=== PATIENT | female | born 1955 | race Hispanic/Latino ===

== ENCOUNTER 2018-12-27 10:29 | Inpatient (IN) | payer MEDICARE ==
--- NOTE | 2018-12-27 11:16 | Emergency Department Report ---
ED Shortness of Breath HPI - General Chief Complaint: Dyspnea/Respdistress Stated Complaint: DANIELA Time Seen by Provider: 12/27/18 11:04 Source: patient Mode of arrival: Ambulatory Limitations: No Limitations - History of Present Illness Initial Comments: 63-year-old female with past medical history of mental health disorder and COPD is currently bedridden presents to emergency department via EMS from [facility] for cough, chest congestion and sputum production breath. Patient states she has not eating well for the past few weeks but denies any nausea, vomiting, diarrhea, abdominal pain or chest pain. She was given DuoNe 2 facility and was asked to department for further evaluation and treatment options. She denies any tobacco usage ,hemoptysis and hematemesis and hematochezia. MD Complaint: shortness of breath -: Gradual Severity: mild Consistency: constant Improves With: nothing Worsens With: lying flat Known History Of: COPD Associated Symptoms: cough, sputum production - Related Data Home Medications Medication Instructions Recorded Confirmed Last Taken Amantadine [Symmetrel] 200 mg PO HS 12/27/18 12/27/18 Unknown Gabapentin [Neurontin] 300 mg PO HS 12/27/18 12/27/18 Unknown Omeprazole 40 mg PO DAILY 12/27/18 12/27/18 Unknown Oxycodone HCl/Acetaminophen 1 each PO BID PRN 12/27/18 12/27/18 Unknown [Percocet 10/325 mg] QUEtiapine [SEROquel] 150 mg PO HS 12/27/18 12/27/18 Unknown cephALEXin [Keflex] 250 mg PO QID 12/27/18 12/27/18 Unknown diazePAM [Diazepam] 10 mg PO TID 12/27/18 12/27/18 Unknown predniSONE [Deltasone] 5 mg PO DAILY 12/27/18 12/27/18 Unknown Allergies Allergy/AdvReac Type Severity Reaction Status Date / Time No Known Allergies Allergy Unverified 12/27/18 11:02 ED Review of Systems ROS: Stated complaint: DANIELA Other details as noted in HPI Comment: All other systems reviewed and negative ED Past Medical Hx - Past Medical History Previous Medical History?: Yes - Social History Smoking Status: Never Smoker - Medications Home Medications: Home Medications Medication Instructions Recorded Confirmed Last Taken Type Amantadine [Symmetrel] 200 mg PO HS 12/27/18 12/27/18 Unknown History Gabapentin [Neurontin] 300 mg PO HS 12/27/18 12/27/18 Unknown History Omeprazole 40 mg PO DAILY 12/27/18 12/27/18 Unknown History Oxycodone HCl/Acetaminophen 1 each PO BID PRN 12/27/18 12/27/18 Unknown History [Percocet 10/325 mg] QUEtiapine [SEROquel] 150 mg PO HS 12/27/18 12/27/18 Unknown History cephALEXin [Keflex] 250 mg PO QID 12/27/18 12/27/18 Unknown History diazePAM [Diazepam] 10 mg PO TID 12/27/18 12/27/18 Unknown History predniSONE [Deltasone] 5 mg PO DAILY 12/27/18 12/27/18 Unknown History ED Physical Exam - General Limitations: No Limitations General appearance: cachectic - Head Head exam: Present: atraumatic - Eye Eye exam: Present: PERRL, EOMI Pupils: Present: normal accommodation - ENT ENT exam: Present: normal exam - Neck Neck exam: Absent: tenderness, meningismus - Respiratory Respiratory exam: Present: rhonchi (heavy rhonchi) - Cardiovascular Cardiovascular Exam: Present: regular rate, normal rhythm - GI/Abdominal GI/Abdominal exam: Present: normal bowel sounds. Absent: organomegaly, mass, bruit - Extremities Exam Extremities exam: Present: normal inspection, full ROM - Back Exam Back exam: Present: normal inspection, full ROM - Neurological Exam Neurological exam: Present: CN II-XII intact - Psychiatric Psychiatric exam: Present: normal affect, normal mood ED Course Vital Signs 12/27/18 12/27/18 12/27/18 11:00 11:01 11:30 Temperature 98.2 F Pulse Rate 88 72 85 Pulse Rate [ Anterior Bilateral Throughout] Respiratory 19 18 19 Rate Respiratory Rate [Anterior Bilateral Throughout] Blood Pressure 145/95 165/90 145/95 O2 Sat by Pulse 100 94 97 Oximetry 12/27/18 12/27/18 12/27/18 12:00 12:19 12:30 Temperature Pulse Rate 77 78 Pulse Rate [ 80 Anterior Bilateral Throughout] Respiratory 23 19 Rate Respiratory 20 Rate [Anterior Bilateral Throughout] Blood Pressure 164/91 162/92 O2 Sat by Pulse 93 95 Oximetry 12/27/18 12/27/18 13:30 14:30 Temperature Pulse Rate 94 H 83 Pulse Rate [ Anterior Bilateral Throughout] Respiratory 23 22 Rate Respiratory Rate [Anterior Bilateral Throughout] Blood Pressure 181/88 181/88 O2 Sat by Pulse 90 Oximetry - Reevaluation(s) Reevaluation #1: 12/27/18 12:07 Ms. Santana failed a swallow eval case discussed with the attending plan is to admit to hospital for dysphagia will consult gastroenterology to follow along his case recommendations. - Consultations Consultation #1: 12/27/18 11:[address] donaldson and plan is to evaluate and treat the respiratory status. If clear will discharge home. 12/27/18 12:07 Further evaluation patient plans to swallow evaluation Consultation #2: 12/27/18 13:46 , Consulted case with hospitalist Dr. Marilu Carey come down and talk [id number] for admission ED Medical Decision Making - Lab Data Result diagrams: 12/27/18 12:34 12/27/18 12:34 - Radiology Data Radiology results: report reviewed Findings [address] [address] XRay Report Signed Patient: EL SANTANA MR#: [id number] : 1955 Acct:[id number] Age/Sex: 63 / F ADM Date: 12/27/18 Loc: ED Attending Dr: Ordering Physician: EILEEN DAS Date of Service: 12/27/18 Proce dure(s): XR chest 1V ap Accession Number(s): [id number] cc: EILEEN DAS Fluoro Time In Minutes: CHEST 1 VIEW 12/27/2018 11:07 AM INDICATION / CLINICAL INFORMATION: cough and sob. COMPARISON: None available. FINDINGS: SUPPORT DEVICES: None. HEART / MEDIASTINUM: No significant abnormality. LUNGS / PLEURA: No significant pulmonary or pleural abnormality. No pneumothorax. ADDITIONAL FINDINGS: No significant additional findings. IMPRESSION: 1. No acute findings. Signer Name: Brian Norris MD Signed: 12/27/2018 11:28 AM Workstation Name: [id number] - Medical Decision Making 63-year-old female with past medical history of COPD currently a resident at [facility]. The nurse over the family member calling and stating the patient has been having some issues walking with weakness for the last month him a month and a half. She's been cleared at [facility] the plan was to discharge her to rehabilitation on tomorrow for conditioning and strength building. Patient was reportedly seen at another hospital in yesterday or they did a chest x-ray and and discharged her back to [facility]. Today apparently they wanted to evaluate the chest x-ray to make sure that there was no infectious process. Swallow eval was not past her laboratory data does reveal some hypernatremia 155. This is believed to be a chronic nature due to her failure to thrive decreased oral intake which has been progressively worsening over time. Plan is to admit Ms. Santana to have G to follow alone to help her dysphagia. In the room for hypernatremia fluid deficit was dilated to be admitted to [facility]. Started her on D5 normal saline at [address] Rodgers stating that the barium swallow was unsuccessful that nearly all of the barium head infiltrated the trachea of Ms. Santana. Hospitalist was notified of the following results to ensure that the initiation of aspi ration protocol Critical care attestation.: If time is entered above; I have spent that time in minutes in the direct care of this critically ill patient, excluding procedure time. ED Disposition Clinical Impression: Dysphagia, Failure to thrive Disposition: OP ADMIT IP TO THIS HOSP Is pt being admited?: Yes Does the pt Need Aspirin: No Condition: Stable
[2018-12-27] MEDS ORDERED: PROVENTIL IH STA (11:25)
[2018-12-27] MEDS ORDERED: ATROVENT IH STA (11:25)
--- NOTE | 2018-12-27 11:33 | XRay Report ---
CHEST 1 VIEW 12/27/2018 11:07 AM INDICATION / CLINICAL INFORMATION: cough and sob. COMPARISON: None available. FINDINGS: SUPPORT DEVICES: None. HEART / MEDIASTINUM: No significant abnormality. LUNGS / PLEURA: No significant pulmonary or pleural abnormality. No pneumothorax. ADDITIONAL FINDINGS: No significant additional findings. IMPRESSION: 1. No acute findings. Signer Name: Brian Norris MD Signed: 12/27/2018 11:28 AM Workstation Name: [id number]
--- NOTE | 2018-12-27 12:31 | Event Note ---
Date of service: 12/27/18 Face to Face: This is a 63-year-old female who presents with failure to thrive, and dysphagia. She has transmitted upper airway sounds, and coarse upper pharyngeal sounds. She endorses weakness. The nurse administered a swallow screen, which the patient unfortunately found. Apparently, she is in an outpatient psychiatric facility which is going to send her to a rehabilitation facility within the week. However, the patient is not able to tolerate liquid feeds, or solids at this time. Discussed with gastroenterology on-call, Dr. Burns. Recommends barium swallow screen, and is in agreement with admission for failure to thrive. Case management consult has also been involved. Dr. Burns indicates that if inpatient team desires placement of feeding tube, in conjunction with discussion with family to establish goals of care, the gastroenterology service is amenable to following in consultation for placement of feeding tube. Respiratory therapy consulted for chest physiotherapy, and albuterol therapy. Screening laboratory studies ordered. Plan to admit the patient for failure to thrive, and dysphagia. Discussed with physician floral assistant, who will contact the medical team once initial diagnostics have resulted. Vital Signs 12/27/18 12/27/18 11:01 12:19 Temperature 98.2 F Pulse Rate 72 Pulse Rate [ 80 Anterior Bilateral Throughout] Respiratory 18 Rate Respiratory 20 Rate [Anterior Bilateral Throughout] Blood Pressure 165/90 O2 Sat by Pulse 94 Oximetry
[2018-12-27 12:49] LABS: Hematocrit 48.3 % (30.3-42.9); Hemoglobin 15.8 gm/dl (10.1-14.3); Mean Corpuscular HGB Conc 33 % (30-34); Mean Corpuscular Volume 99 fl (79-97); Platelet Count 229 K/mm3 (140-440); Red Blood Count 4.86 M/mm3 (3.65-5.03)
[2018-12-27 13:13] LABS: Alanine Aminotransferase 73 units/L (7-56); Albumin 4.7 g/dL (3.9-5); BUN/Creatinine Ratio 70; Blood Urea Nitrogen 63 mg/dL (7-17); Hemolysis Index 80
[2018-12-27] MEDS ORDERED: D5NS 1,000 ML IV SCH (14:00)
--- NOTE | 2018-12-27 15:55 | Fluoroscopy Report ---
BARIUM SWALLOW HISTORY: Dysphagia FINDINGS: 3 minutes of fluoroscopy time was utilized. 21 fluoroscopic images were saved. Difficult examination with an uncooperative patient. Deglutition is abnormal. The patient had severe difficulty initiating the swallowing mechanism. Only a very small amount of contrast agent actually entered the cervical and thoracic esophagus. There miya ears to be some sort of obstruction at the level of the cricopharyngeus muscle. Cricopharyngeus achal rosey could be considered. The esophagus is incompletely evaluated on this exam but appears normal casey iber. Large episode of aspiration of barium occurred during this exam. The examination was terminated immed iately. The patient's oropharynx and hypopharynx were suctioned to remove as much barium as possible. After multiple episodes of coughing, the patient calmed down and was breathing normally despite the large and impressive aspiration. The patient left radiology in stable condition. Dr. Linda in the emergency department was immediately called and notified of this occurrence and the p atient was sent back to the ER for evaluation. IMPRESSION: Incomplete esophagram. The patient aspirated a large amount of the barium into the tracheobronchial t ree. Please see above. There appeared to be some level of obstruction at the level of the cricopharyngeus muscle which may i ndicate cricopharyngeus achalasia. Other etiologies are not excluded. Signer Name: Domenico Rodgers Jr, MD Signed: 12/27/2018 3:51 PM Workstation Name: [id number]
--- NOTE | 2018-12-27 21:02 | History and Physical Report ---
History of Present Illness Date of examination: 12/27/18 Date of admission: 12/27/18 14:36 Medications and Allergies Allergies Allergy/AdvReac Type Severity Reaction Status Date / Time No Known Allergies Allergy Unverified 12/27/18 11:02 Home Medications Medication Instructions Recorded Confirmed Last Taken Type Amantadine [Symmetrel] 200 mg PO HS 12/27/18 12/27/18 Unknown History Gabapentin [Neurontin] 300 mg PO HS 12/27/18 12/27/18 Unknown History Omeprazole 40 mg PO DAILY 12/27/18 12/27/18 Unknown History Oxycodone HCl/Acetaminophen 1 each PO BID PRN 12/27/18 12/27/18 Unknown History [Percocet 10/325 mg] QUEtiapine [SEROquel] 150 mg PO HS 12/27/18 12/27/18 Unknown History cephALEXin [Keflex] 250 mg PO QID 12/27/18 12/27/18 Unknown History diazePAM [Diazepam] 10 mg PO TID 12/27/18 12/27/18 Unknown History predniSONE [Deltasone] 5 mg PO DAILY 12/27/18 12/27/18 Unknown History Active Meds: Active Medications Dextrose/Sodium Chloride (D5ns) 1,000 mls @ 58 mls/hr IV DIRECT ADELA Exam - Constitutional Vitals: Temp Pulse Resp BP Pulse Ox 98.0 F 76 18 157/86 98 12/27/18 17:30 12/27/18 17:30 12/27/18 17:30 12/27/18 17:30 12/27/18 17:30 Results - Labs CBC & Chem 7: 12/27/18 12:34 12/27/18 12:34 Labs: Laboratory Last Values WBC 11.9 K/mm3 (4.5-11.0) H 12/27/18 12:34 RBC 4.86 M/mm3 (3.65-5.03) 12/27/18 12:34 Hgb 15.8 gm/dl (10.1-14.3) H 12/27/18 12:34 Hct 48.3 % (30.3-42.9) H 12/27/18 12:34 MCV 99 fl (79-97) H 12/27/18 12:34 MCH 32 pg (28-32) 12/27/18 12:34 MCHC 33 % (30-34) 12/27/18 12:34 RDW 17.0 % (13.2-15.2) H 12/27/18 12:34 Plt Count 229 K/mm3 (140-440) 12/27/18 12:34 Sodium 155 mmol/L (137-145) H 12/27/18 12:34 Potassium 4.2 mmol/L (3.6-5.0) 12/27/18 12:34 Chloride 113.1 mmol/L (98-107) H 12/27/18 12:34 Carbon Dioxide 24 mmol/L (22-30) 12/27/18 12:34 Anion Gap 22 mmol/L 12/27/18 12:34 BUN 63 mg/dL (7-17) H 12/27/18 12:34 Creatinine 0.9 mg/dL (0.7-1.2) 12/27/18 12:34 Estimated GFR > 60 ml/min 12/27/18 12:34 BUN/Creatinine Ratio 70 % 12/27/18 12:34 Glucose 103 mg/dL (65-100) H 12/27/18 12:34 Calcium 10.0 mg/dL (8.4-10.2) 12/27/18 12:34 Total Bilirubin 0.50 mg/dL (0.1-1.2) 12/27/18 12:34 AST 56 units/L (5-40) H 12/27/18 12:34 ALT 73 units/L (7-56) H 12/27/18 12:34 Alkaline Phosphatase 79 units/L (35-129) 12/27/18 12:34 Total Protein 8.3 g/dL (6.3-8.2) H 12/27/18 12:34 Albumin 4.7 g/dL (3.9-5) 12/27/18 12:34 Albumin/Globulin Ratio 1.3 % 12/27/18 12:34
[2018-12-27] MEDS ORDERED: TYLENOL PO PRN (21:03)
[2018-12-27] MEDS ORDERED: SODIUM CHLORIDE FLUSH SYRINGE 10 ML IV PRN (21:03)
[2018-12-27] MEDS ORDERED: DILAUDID IV PRN (21:03)
[2018-12-27] MEDS ORDERED: ZOFRAN IV PRN (21:03)
[2018-12-27] MEDS: D5W 1,000 ML IV SCH (22:34)
[2018-12-27] MEDS: PEPCID IV SCH (22:34)
[2018-12-28 05:33] LABS: Basophils % (Auto) 0.1 % (0.0-1.8); Eosinophils % (Auto) 0.1 % (0.0-4.3); Hematocrit 48.9 % (30.3-42.9); Hemoglobin 15.8 gm/dl (10.1-14.3); Lymphocytes # (Auto) 2.3 K/mm3 (1.2-5.4); Mean Corpuscular HGB Conc 32 % (30-34); Mean Corpuscular Volume 101 fl (79-97); Monocytes # (Auto) 1.5 K/mm3 (0.0-0.8); Monocytes % (Auto) 9.1 % (0.0-7.3); Platelet Count 193 K/mm3 (140-440); Red Blood Count 4.83 M/mm3 (3.65-5.03); Red Cell Distribution Width 17.2 % (13.2-15.2)
[2018-12-28 05:47] LABS: Alanine Aminotransferase 68 units/L (7-56); Albumin 4.8 g/dL (3.9-5); BUN/Creatinine Ratio 62; Blood Urea Nitrogen 56 mg/dL (7-17); Calcium 9.6 mg/dL (8.4-10.2); Hemolysis Index 33
--- NOTE | 2018-12-28 06:34 | Event Note ---
Date: 12/27/18 See H/p in reports Dysphagia failure to thrive Hypernatremia DEEPAK Transaminitis
--- NOTE | 2018-12-28 06:58 | History and Physical Report ---
CHIEF COMPLAINT: 1. Increasing respiratory distress. 2. Poor p.o. intake. HISTORY OF PRESENT ILLNESS: A 63-year-old female with a history of COPD and bipolar disorder, currently bedridden comes to the Emergency Room for cough, chest congestion and sputum production. The patient has not been able to eat for the past few weeks. Has a choking sensation when she is eating. The patient also has wheezing. No fever or chills. No recent travel. PAST MEDICAL HISTORY: Significant for bipolar disorder, gastroesophageal reflux disease and peripheral neuropathy and severe dysphagia and COPD. SOCIAL HISTORY: Does not smoke. PAST SURGICAL HISTORY: Unavailable. FAMILY HISTORY: Unavailable. REVIEW OF SYSTEMS: Significant for wheezing and shortness of breath and also cough, especially while eating. Unable to swallow and has a choking sensation. Otherwise, review of systems negative. PHYSICAL EXAMINATION: GENERAL: Young elderly female, looks older than her age. VITAL SIGNS: Blood pressure is 157/86, temperature is 98.0, pulse is 76, sats are 98%, respiratory rate is 18. HEENT: Dry mucous membranes. NECK: Supple, no lymphadenopathy, no thyromegaly. LUNGS: Clear to auscultation and percussion. Good air entry. CARDIOVASCULAR: S1, S2 heard. No gallop, no murmur, no rub. Apical impulse in left fifth intercostal space and midclavicular line. ABDOMEN: Soft and benign. No hepatosplenomegaly. No guarding, no rigidity. Hernial orifices are normal. EXTREMITIES: Good pedal pulses. CENTRAL NERVOUS SYSTEM: Alert and oriented. No focal deficits. SKIN: Normal. Less turgor. LABORATORY DATA: White count is 11,900, H and H is 15.8 and 48.3, platelet count is 229,000. Sodium is 155, potassium is 4.2, BUN and creatinine 16 and 0.9, AST is 56, ALT is 73. Total protein is 8.3. Albumin is 4.7. DIAGNOSTIC DATA: Chest x-ray shows no acute findings. Barium swallow shows aspiration. The patient aspirated a large amount of barium into the tracheobronchial tree. Appears to be some level of obstruction at the level of the cricopharyngeus muscle, which may indicate cricopharyngeal achalasia. ASSESSMENT AND PLAN: 1. Severe dysphagia. The patient's barium swallow shows aspiration into tracheobronchial tree. The patient needs a PEG tube for nutrition. 2. Chronic obstructive pulmonary disease exacerbation. The patient on DuoNeb and IV steroids and IV Levaquin. 3. Hypernatremia, D5W at 100 mL started. The patient is kept n.p.o. 4. Acute kidney injury secondary to vasomotor nephropathy. IV fluids for now. 5. Bipolar disorder. We will hold quetiapine and prednisone for now. 6. Gastroesophageal reflux disease. Protonix IV initiated. 7. Peripheral neuropathy. Hold the gabapentin. 8. Deep venous thrombosis prophylaxis, Lovenox 40 mg subcutaneous daily. In summary, the patient has severe dysphagia and COPD exacerbation. The patient needs emergent PEG tube if the family agrees. JOB# [id number] SAIDA/ZHANG KELLEY
[2018-12-28 07:49] LABS: Hepatitis B Surface Antigen Non-Reactive (Negative); Hepatitis C Virus Antibody Non-Reactive (NonReactive)
[2018-12-28] MEDS: D5W 1,000 ML IV SCH ×2 (08:32→19:55)
[2018-12-28] MEDS ORDERED: APRESOLINE IV PRN (09:00)
[2018-12-28] MEDS: PEPCID IV SCH ×2 (09:50→22:35)
[2018-12-28] MEDS: NORVASC PO SCH (09:55)
[2018-12-28] MEDS: SODIUM CHLORIDE FLUSH SYRINGE 10 ML IV SCH ×2 (09:55→22:35)
[2018-12-28] MEDS ORDERED: CATAPRES-TTS PATCH TD SCH (10:00)
[2018-12-28] MEDS ORDERED: LEVAQUIN 500MG/100ML 500 MG/100 ML BAG IV SCH (12:00)
[2018-12-28] MEDS ORDERED: LEVAQUIN 500MG/100ML 500 MG/100 ML BAG IV NR (12:00)
--- NOTE | 2018-12-28 12:11 | Progress Note ---
Assessment and Plan Assessment and plan: Difficulty swallowing admitted to [facility] Keep NPO GI consulted swallow eval iv fluids Dehydration started on iv fluids Hypernatremia Na 155 cont d5w @75 COPD exacerbation Add solu-medrol Cont Duoneb Bipolar disorder Full code History Interval history: Difficulty swallowing Shortness of breath Hospitalist Physical - Physical exam Narrative exam: Gen: Not in acute distress, lying in bed,malnourished HEENT: Normocephalic, atraumatic Neck: supple, no JVD Heart: S1 and S2 reg, no murmurs, rubs or gallop Lungs: bilateral rhonchi, wheeze Abd: soft, non tender , no rebound tenderness, non distended, normal BS, Ext: No edema, no clubbing, no cyanosis Neuro: Awake, alert, cannot understand speech - Constitutional Vitals: Temp Pulse Resp BP Pulse Ox 98.7 F 49 L 18 159/75 95 12/28/18 08:06 12/28/18 09:55 12/28/18 10:00 12/28/18 09:55 12/28/18 10:00 Results - Labs CBC & Chem 7: 12/28/18 05:00 12/28/18 05:00 Labs: Laboratory Last Values WBC 16.7 K/mm3 (4.5-11.0) H 12/28/18 05:00 RBC 4.83 M/mm3 (3.65-5.03) 12/28/18 05:00 Hgb 15.8 gm/dl (10.1-14.3) H 12/28/18 05:00 Hct 48.9 % (30.3-42.9) H 12/28/18 05:00 MCV 101 fl (79-97) H 12/28/18 05:00 MCH 33 pg (28-32) H 12/28/18 05:00 MCHC 32 % (30-34) 12/28/18 05:00 RDW 17.2 % (13.2-15.2) H 12/28/18 05:00 Plt Count 193 K/mm3 (140-440) 12/28/18 05:00 Lymph % (Auto) 14.0 % (13.4-35.0) 12/28/18 05:00 [place] % (Auto) 9.1 % (0.0-7.3) H 12/28/18 05:00 Eos % (Auto) 0.1 % (0.0-4.3) 12/28/18 05:00 Baso % (Auto) 0.1 % (0.0-1.8) 12/28/18 05:00 Lymph # 2.3 K/mm3 (1.2-5.4) 12/28/18 05:00 [place] # 1.5 K/mm3 (0.0-0.8) H 12/28/18 05:00 Eos # 0.0 K/mm3 (0.0-0.4) 12/28/18 05:00 Baso # 0.0 K/mm3 (0.0-0.1) 12/28/18 05:00 Seg Neutrophils % 76.7 % (40.0-70.0) H 12/28/18 05:00 Seg Neutrophils # 12.8 K/mm3 (1.8-7.7) H 12/28/18 05:00 Sodium 155 mmol/L (137-145) H 12/28/18 05:00 Potassium 3.8 mmol/L (3.6-5.0) 12/28/18 05:00 Chloride 115.0 mmol/L (98-107) H 12/28/18 05:00 Carbon Dioxide 24 mmol/L (22-30) 12/28/18 05:00 Anion Gap 20 mmol/L 12/28/18 05:00 BUN 56 mg/dL (7-17) H 12/28/18 05:00 Creatinine 0.9 mg/dL (0.7-1.2) 12/28/18 05:00 Estimated GFR > 60 ml/min 12/28/18 05:00 BUN/Creatinine Ratio 62 % 12/28/18 05:00 Glucose 142 mg/dL (65-100) H 12/28/18 05:00 Hemoglobin A1c 5.5 % (4-6) 12/27/18 12:34 Calcium 9.6 mg/dL (8.4-10.2) 12/28/18 05:00 Total Bilirubin 0.50 mg/dL (0.1-1.2) 12/28/18 05:00 AST 40 units/L (5-40) 12/28/18 05:00 ALT 68 units/L (7-56) H 12/28/18 05:00 Alkaline Phosphatase 81 units/L (35-129) 12/28/18 05:00 Total Protein 7.5 g/dL (6.3-8.2) 12/28/18 05:00 Albumin 4.8 g/dL (3.9-5) 12/28/18 05:00 Albumin/Globulin Ratio 1.8 % 12/28/18 05:00 Hepatitis A IgM Ab Non-reactive (NonReactive) 12/28/18 06:44 Hep Bs Antigen Non-reactive (Negative) 12/28/18 06:44 Hep B Core IgM Ab Non-reactive (NonReactive) 12/28/18 06:44 Hepatitis C Antibody Non-reactive (NonReactive) 12/28/18 06:44 Active Medications - Current Medications Current Medications: Generic Name Dose Route Start Last Admin Trade Name Freq PRN Reason Stop Dose Admin Acetaminophen 650 mg 12/27/18 21:03 Tylenol PO Q4H PRN Pain MILD(1-3)/Fever >100.5/ELIZABETH Albuterol/Ipratropium 1 ampul 12/28/18 12:00 Duoneb *Not For Prn Use* IH QIDRT [facility] Amlodipine Besylate 5 mg 12/28/18 08:15 12/28/18 09:55 Norvasc PO Not Given QDAY [facility] Clonidine HCl 0.2 mg 12/28/18 10:00 12/28/18 09:55 Catapres-Tts Patch TD 0.2 mg Th ADELA Administration Enoxaparin Sodium 40 mg 12/28/18 22:00 Lovenox SUB-Q QDAY@2200 ADELA Famotidine 20 mg 12/27/18 22:00 12/28/18 09:50 Pepcid IV 20 mg BID ADELA Administration Hydralazine HCl 10 mg 12/28/18 09:00 Apresoline IV Q4H PRN SBP>170 or DBP>110 Hydromorphone HCl 0.5 mg 12/27/18 21:03 Dilaudid IV Q3H PRN Pain , Severe (7-10) Dextrose 1,000 mls @ 100 mls/hr 12/27/18 22:00 12/28/18 08:32 D5w IV 100 mls/hr DIRECT ADELA Administration Levofloxacin/Dextrose 500 mg in 100 mls @ 100 mls/hr 12/28/18 12:00 Levaquin 500mg/100ml IV 12/28/18 15:00 ONCE NR Protocol Levofloxacin/Dextrose 250 mg in 50 mls @ 50 mls/hr 12/29/18 10:00 Levaquin 250mg/50ml IV Q24HR ADELA Ondansetron HCl 4 mg 12/27/18 21:03 Zofran IV Q8H PRN Nausea And Vomiting Sodium Chloride 10 ml 12/27/18 22:00 12/28/18 09:55 Sodium Chloride Flush Syringe 10 Ml IV 10 ml BID ADELA Administration Sodium Chloride 10 ml 12/27/18 21:03 Sodium Chloride Flush Syringe 10 Ml IV PRN PRN LINE FLUSH Nutrition/Malnutrition Assess - Dietary Evaluation Nutrition/Malnutrition Findings: Nutrition Notes Start: 12/28/18 10:43 Freq: Status: Active Protocol: Document 12/28/18 10:43 RS (Rec: 12/28/18 11:17 RS [id number]) Co-Sign 12/28/18 10:43 LM Nutrition Notes Need for Assessment generated from: MD Order,MST,Low BMI Initial or Follow up Assessment Current Diagnosis Acute Kidney Injury,COPD Other Pertinent Diagnosis Bipolar Disorder, Dysphagia, Hypernatremia Current Diet NPO Labs/Tests Na: 155 Glu:142 BUN:56 Pertinent Medications D5W Height 5 ft 4 in Weight 42.8 kg [place] Body Weight (kg) 54.54 BMI 16.2 Weight change and time frame Unable to retrieve wt hx Weight Status Underweight Subjective/Other Information MD consult for malnutrition and difficulty chewing. Unable to determine diet/wt hx d/t pt's nonverbal state. Pt has choking sensation when eating and spits fluid out when ingested. Barium swallow shows aspiration into tracheobroncial tree. Pt has no teeth and does not have dentures. Pt currently does not have PEG tube placement, and MD will consult for diet advancement. Noted severe temporal/clavical wasting. Burn Absent Trauma Absent GI Symptoms None Difficulty In Swallowing,Chewing Food Allergy No Current % PO Negligible Minimum of two criteria Yes Body Fat Depletion Moderate depletion (severe) Muscle Mass Moderate Depletion (severe) Protein-Calorie Malnutrition Severe #2 Nutrition Diagnosis Malnutrition Etiology dysphagia, missing teeth As Evidenced by Signs and Symptoms fat and muscle (temporal/ clavical) wasting #1 Nutrition Diagnosis Inadequate oral intake Etiology dysphagia, chewing difficulty As Evidenced by Signs and Symptoms BMI 16.2, pt missing teeth, failed barium swallow Is patient on ventilator? No Is Patient Ambulatory and/or Out of Bed No REE-([facility]-confined to bed) 1155.324 Kcal/Kg value to use for calculation 35 Approximate Energy Requirements Using 1498 kcal/Kg Calculation Used for Recommendations Kcal/kg Additional Notes PRO needs (1.2-1.5g/day): 51-64g/day Fluid: 1mL/day Nutrition Intervention Change Diet Order: NPO until MD advances diet Goal #1 F/U for diet advancement Goal #2 wt gain/maintenance Follow-Up By: 01/01/19 Additional Comments F/U for wt changes and diet advancement
[2018-12-28] MEDS: VALIUM IV SCH ×2 (15:27→22:44)
[2018-12-28] MEDS: PROTONIX IV SCH (16:00)
[2018-12-28 16:04] LABS: Bilirubin,Urine NEG (Negative); Blood,Urine NEG (Negative); Color,Urine Yellow (Yellow); Hyaline Casts,Urine 1 /LPF; Mucus,Urine FEW /HPF; Protein,Urine <15 mg/dL mg/dL (Negative); RBC,Urine < 1.0 /HPF (0.0-6.0); Urobilinogen,Urine < 2.0 mg/dL (<2.0)
[2018-12-28] MEDS: SOLU-Medrol IV SCH ×2 (16:05→22:35)
[2018-12-28] MEDS: DUONEB *Not for PRN Use IH SCH ×2 (17:18→20:55)
[2018-12-28 18:04] LABS: BUN/Creatinine Ratio 43; Blood Urea Nitrogen 39 mg/dL (7-17); Calcium 9.1 mg/dL (8.4-10.2); Hemolysis Index 6
--- NOTE | 2018-12-28 20:05 | Gastroenterology Consultation ---
History of Present Illness - Reason for Consult Consult date: 12/28/18 poor po intake/dysphagia Requesting physician: YAMILET YEUNG - History of Present Illness The patient is a 63 yo wf with h/o bipolar disorder/shizophrenia who presents with sob, dysphagia, and hypernatremia. Pt awake but confused/altered and unable to provide meaningful history. Reportely with poor po intake and failed bedside swallow study. no family at bedside. Medications and Allergies Allergies Allergy/AdvReac Type Severity Reaction Status Date / Time No Known Allergies Allergy Unverified 12/27/18 11:02 Home Medications Medication Instructions Recorded Confirmed Last Taken Type Amantadine [Symmetrel] 200 mg PO HS 12/27/18 12/27/18 Unknown History Gabapentin [Neurontin] 300 mg PO HS 12/27/18 12/27/18 Unknown History Omeprazole 40 mg PO DAILY 12/27/18 12/27/18 Unknown History Oxycodone HCl/Acetaminophen 1 each PO BID PRN 12/27/18 12/27/18 Unknown History [Percocet 10/325 mg] QUEtiapine [SEROquel] 150 mg PO HS 12/27/18 12/27/18 Unknown History diazePAM [Diazepam] 10 mg PO TID 12/27/18 12/27/18 Unknown History predniSONE [Deltasone] 5 mg PO DAILY 12/27/18 12/27/18 Unknown History Active Meds: Active Medications Acetaminophen (Tylenol) 650 mg PO Q4H PRN PRN Reason: Pain MILD(1-3)/Fever >100.5/ELIZABETH Albuterol/Ipratropium (Duoneb *Not For Prn Use*) 1 ampul IH QIDRT [facility] Last Admin: 12/28/18 17:18 Dose: Not Given Documented by: Amlodipine Besylate (Norvasc) 5 mg PO QDAY [facility] Last Admin: 12/28/18 09:55 Dose: Not Given Documented by: Clonidine HCl (Catapres-Tts Patch) 0.2 mg TD Th [facility] Last Admin: 12/28/18 09:55 Dose: 0.2 mg Documented by: Diazepam (Valium) 5 mg IV Q8H [facility] Last Admin: 12/28/18 15:27 Dose: 5 mg Documented by: Enoxaparin Sodium (Lovenox) 40 mg SUB-Q QDAY@2200 [facility] Famotidine (Pepcid) 20 mg IV BID [facility] Last Admin: 12/28/18 09:50 Dose: 20 mg Documented by: Hydralazine HCl (Apresoline) 10 mg IV Q4H PRN PRN Reason: SBP>170 or DBP>110 Dextrose (D5w) 1,000 mls @ 100 mls/hr IV DIRECT [facility] Last Admin: 12/28/18 19:55 Dose: 100 mls/hr Documented by: Levofloxacin/Dextrose (Levaquin 250mg/50ml) 250 mg in 50 mls @ 50 mls/hr IV Q24HR [facility] Methylprednisolone Sodium Succinate (Solu-Medrol) 20 mg IV Q12HR [facility] Last Admin: 12/28/18 16:05 Dose: 20 mg Documented by: Ondansetron HCl (Zofran) 4 mg IV Q8H PRN PRN Reason: Nausea And Vomiting Pantoprazole Sodium (Protonix) 40 mg IV QDAY [facility] Last Admin: 12/28/18 16:00 Dose: 40 mg Documented by: Sodium Chloride (Sodium Chloride Flush Syringe 10 Ml) 10 ml IV BID [facility] Last Admin: 12/28/18 09:55 Dose: 10 ml Documented by: Sodium Chloride (Sodium Chloride Flush Syringe 10 Ml) 10 ml IV PRN PRN PRN Reason: LINE FLUSH Last Admin: 12/28/18 16:05 Dose: 10 ml Documented by: Reviewed/updated patient's home and current medications Review of Systems - Review of Systems ROS unobtainable: due to mental status Exam - Constitutional Vital Signs: Temp Pulse Resp BP Pulse Ox 99.4 F 79 18 128/75 93 12/28/18 19:18 12/28/18 19:18 12/28/18 19:18 12/28/18 19:18 12/28/18 19:18 General appearance: no acute distress, disheveled - EENT Eyes: PERRL ENT: hearing intact - Respiratory Respiratory effort: normal Respiratory: bilateral: CTA - Cardiovascular Rhythm: regular Heart Sounds: Present: S1 & S2 Extremities: No edema, Full ROM - Gastrointestinal General gastrointestinal: Present: soft, non-tender, non-distended - Integumentary Integumentary: Present: clear, warm - Neurologic Neurological: disoriented - Labs CBC & Chem 7: 12/29/18 03:25 12/29/18 03:25 Lab Results: Laboratory Results - last 24 hr 12/27/18 12/27/18 12/28/18 12:34 Unknown 05:00 WBC 16.7 H RBC 4.83 Hgb 15.8 H Hct 48.9 H MCV 101 H MCH 33 H MCHC 32 RDW 17.2 H Plt Count 193 Lymph % (Auto) 14.0 [place] % (Auto) 9.1 H Eos % (Auto) 0.1 Baso % (Auto) 0.1 Lymph # 2.3 [place] # 1.5 H Eos # 0.0 Baso # 0.0 Seg Neutrophils % 76.7 H Seg Neutrophils # 12.8 H Sodium Potassium Chloride Carbon Dioxide Anion Gap BUN Creatinine Estimated GFR BUN/Creatinine Ratio Glucose Hemoglobin A1c 5.5 Calcium Total Bilirubin AST ALT Alkaline Phosphatase Total Protein Albumin Albumin/Globulin Ratio Urine Color Yellow Urine Turbidity Clear Urine pH 5.0 Ur Specific [place] 1.018 Urine Protein <15 mg/dl Urine Glucose (UA) Neg Urine Ketones Tr Urine Blood Neg Urine Nitrite Neg Urine Bilirubin Neg Urine Urobilinogen < 2.0 Ur Leukocyte Esterase Neg Urine WBC (Auto) 1.0 Urine RBC (Auto) < 1.0 U Epithel Cells (Auto) < 1.0 Hyaline Casts 1 Urine Mucus Few Hepatitis A IgM Ab Hep Bs Antigen Hep B Core IgM Ab Hepatitis C Antibody 12/28/18 12/28/18 12/28/18 05:00 06:44 17:11 WBC RBC Hgb Hct MCV MCH MCHC RDW Plt Count Lymph % (Auto) [place] % (Auto) Eos % (Auto) Baso % (Auto) Lymph # [place] # Eos # Baso # Seg Neutrophils % Seg Neutrophils # Sodium 155 H 150 H Potassium 3.8 3.3 L Chloride 115.0 H 108.3 H Carbon Dioxide 24 25 Anion Gap 20 20 BUN 56 H 39 H Creatinine 0.9 0.9 Estimated GFR > 60 > 60 BUN/Creatinine Ratio 62 43 Glucose 142 H 120 H Hemoglobin A1c Calcium 9.6 9.1 Total Bilirubin 0.50 AST 40 ALT 68 H Alkaline Phosphatase 81 Total Protein 7.5 Albumin 4.8 Albumin/Globulin Ratio 1.8 Urine Color Urine Turbidity Urine pH Ur Specific [place] Urine Protein Urine Glucose (UA) Urine Ketones Urine Blood Urine Nitrite Urine Bilirubin Urine Urobilinogen Ur Leukocyte Esterase Urine WBC (Auto) Urine RBC (Auto) U Epithel Cells (Auto) Hyaline Casts Urine Mucus Hepatitis A IgM Ab Non-reactive Hep Bs Antigen Non-reactive Hep B Core IgM Ab Non-reactive Hepatitis C Antibody Non-reactive Assessment and Plan 1. Dysphagia/poor po intake 2. AMS 3. Hypernatremia 4. COPD -noted MBS results; incomplete study with aspiration and possible mechanical abnormality. will obtain esophagram to assess anatomy and for any mechanical esopaphageal abnormalities. May eventually need PEG tube once acute medical issues resolved and family to consent for pt.
[2018-12-28] MEDS: LOVENOX SUB-Q SCH (22:34)
[2018-12-29 04:56] LABS: Hematocrit 42.9 % (30.3-42.9); Hemoglobin 14.4 gm/dl (10.1-14.3); Mean Corpuscular HGB Conc 34 % (30-34); Mean Corpuscular Volume 98 fl (79-97); Platelet Count 168 K/mm3 (140-440); Red Blood Count 4.36 M/mm3 (3.65-5.03); Red Cell Distribution Width 16.2 % (13.2-15.2)
[2018-12-29 05:23] LABS: BUN/Creatinine Ratio 37; Blood Urea Nitrogen 26 mg/dL (7-17); Calcium 8.9 mg/dL (8.4-10.2); Hemolysis Index 28
[2018-12-29] MEDS: D5W 1,000 ML IV SCH (06:31)
[2018-12-29] MEDS: VALIUM IV SCH ×3 (09:23→21:30)
[2018-12-29] MEDS: NORVASC PO SCH (09:49)
[2018-12-29] MEDS: PROTONIX IV SCH (11:12)
[2018-12-29] MEDS: SOLU-Medrol IV SCH ×2 (11:13→21:31)
[2018-12-29] MEDS: SODIUM CHLORIDE FLUSH SYRINGE 10 ML IV SCH ×3 (11:13→21:32)
[2018-12-29] MEDS: PEPCID IV SCH (11:14)
[2018-12-29] MEDS: LEVAQUIN 250MG/50ML 250 MG/50 ML BAG IV SCH (11:15)
--- NOTE | 2018-12-29 11:47 | Progress Note ---
Assessment and Plan Assessment and plan: Difficulty swallowing admitted to [place] Keep NPO GI consulted swallow eval iv fluids [place] barium swallow ordered Dehydration started on iv fluids Hypernatremia Much improved Discontinue D5W and start D5/0.45NS COPD exacerbation Cont solu-medrol Cont Duoneb Bipolar disorder Full code History Interval history: Difficulty swallowing Shortness of breath Hospitalist Physical - Physical exam Narrative exam: Gen: Not in acute distress, lying in bed,malnourished HEENT: Normocephalic, atraumatic Neck: supple, no JVD Heart: S1 and S2 reg, no murmurs, rubs or gallop Lungs: bilateral rhonchi, wheeze Abd: soft, non tender , no rebound tenderness, non distended, normal BS, Ext: No edema, no clubbing, no cyanosis Neuro: Awake, alert, cannot understand speech - Constitutional Vitals: Temp Pulse Resp BP Pulse Ox 98.8 F 64 18 152/84 99 12/29/18 07:01 12/29/18 09:49 12/29/18 07:01 12/29/18 09:49 12/29/18 07:01 Results - Labs CBC & Chem 7: 12/29/18 03:25 12/29/18 03:25 Labs: Laboratory Last Values WBC 9.3 K/mm3 (4.5-11.0) 12/29/18 03:25 RBC 4.36 M/mm3 (3.65-5.03) 12/29/18 03:25 Hgb 14.4 gm/dl (10.1-14.3) H 12/29/18 03:25 Hct 42.9 % (30.3-42.9) D 12/29/18 03:25 MCV 98 fl (79-97) H 12/29/18 03:25 MCH 33 pg (28-32) H 12/29/18 03:25 MCHC 34 % (30-34) 12/29/18 03:25 RDW 16.2 % (13.2-15.2) H 12/29/18 03:25 Plt Count 168 K/mm3 (140-440) 12/29/18 03:25 Lymph % (Auto) 14.0 % (13.4-35.0) 12/28/18 05:00 [place] % (Auto) 9.1 % (0.0-7.3) H 12/28/18 05:00 Eos % (Auto) 0.1 % (0.0-4.3) 12/28/18 05:00 Baso % (Auto) 0.1 % (0.0-1.8) 12/28/18 05:00 Lymph # 2.3 K/mm3 (1.2-5.4) 12/28/18 05:00 [place] # 1.5 K/mm3 (0.0-0.8) H 12/28/18 05:00 Eos # 0.0 K/mm3 (0.0-0.4) 12/28/18 05:00 Baso # 0.0 K/mm3 (0.0-0.1) 12/28/18 05:00 Seg Neutrophils % 76.7 % (40.0-70.0) H 12/28/18 05:00 Seg Neutrophils # 12.8 K/mm3 (1.8-7.7) H 12/28/18 05:00 Sodium 145 mmol/L (137-145) 12/29/18 03:25 Potassium 3.6 mmol/L (3.6-5.0) 12/29/18 03:25 Chloride 107.5 mmol/L (98-107) H 12/29/18 03:25 Carbon Dioxide 25 mmol/L (22-30) 12/29/18 03:25 Anion Gap 16 mmol/L 12/29/18 03:25 BUN 26 mg/dL (7-17) H 12/29/18 03:25 Creatinine 0.7 mg/dL (0.7-1.2) 12/29/18 03:25 Estimated GFR > 60 ml/min 12/29/18 03:25 BUN/Creatinine Ratio 37 % 12/29/18 03:25 Glucose 156 mg/dL (65-100) H 12/29/18 03:25 Hemoglobin A1c 5.5 % (4-6) 12/27/18 12:34 Calcium 8.9 mg/dL (8.4-10.2) 12/29/18 03:25 Total Bilirubin 0.50 mg/dL (0.1-1.2) 12/28/18 05:00 AST 40 units/L (5-40) 12/28/18 05:00 ALT 68 units/L (7-56) H 12/28/18 05:00 Alkaline Phosphatase 81 units/L (35-129) 12/28/18 05:00 Total Protein 7.5 g/dL (6.3-8.2) 12/28/18 05:00 Albumin 4.8 g/dL (3.9-5) 12/28/18 05:00 Albumin/Globulin Ratio 1.8 % 12/28/18 05:00 Urine Color Yellow (Yellow) 12/27/18 Unknown Urine Turbidity Clear (Clear) 12/27/18 Unknown Urine pH 5.0 (5.0-7.0) 12/27/18 Unknown Ur Specific [place] 1.018 (1.003-1.030) 12/27/18 Unknown Urine Protein <15 mg/dl mg/dL (Negative) 12/27/18 Unknown Urine Glucose (UA) Neg mg/dL (Negative) 12/27/18 Unknown Urine Ketones Tr mg/dL (Negative) 12/27/18 Unknown Urine Blood Neg (Negative) 12/27/18 Unknown Urine Nitrite Neg (Negative) 12/27/18 Unknown Urine Bilirubin Neg (Negative) 12/27/18 Unknown Urine Urobilinogen < 2.0 mg/dL (<2.0) 12/27/18 Unknown Ur Leukocyte Esterase Neg (Negative) 12/27/18 Unknown Urine WBC (Auto) 1.0 /HPF (0.0-6.0) 12/27/18 Unknown Urine RBC (Auto) < 1.0 /HPF (0.0-6.0) 12/27/18 Unknown U Epithel Cells (Auto) < 1.0 /HPF (0-13.0) 12/27/18 Unknown Hyaline Casts 1 /LPF 12/27/18 Unknown Urine Mucus Few /HPF 12/27/18 Unknown Hepatitis A IgM Ab Non-reactive (NonReactive) 12/28/18 06:44 Hep Bs Antigen Non-reactive (Negative) 12/28/18 06:44 Hep B Core IgM Ab Non-reactive (NonReactive) 12/28/18 06:44 Hepatitis C Antibody Non-reactive (NonReactive) 12/28/18 06:44 Active Medications - Current Medications Current Medications: Generic Name Dose Route Start Last Admin Trade Name Freq PRN Reason Stop Dose Admin Acetaminophen 650 mg 12/27/18 21:03 Tylenol PO Q4H PRN Pain MILD(1-3)/Fever >100.5/ELIZABETH Albuterol/Ipratropium 1 ampul 12/28/18 12:00 12/28/18 20:55 Duoneb *Not For Prn Use* IH 1 ampul QIDRT ADELA Administration Amlodipine Besylate 5 mg 12/28/18 08:15 12/29/18 09:49 Norvasc PO 5 mg QDAY ADELA Administration Clonidine HCl 0.2 mg 12/28/18 10:00 12/28/18 09:55 Catapres-Tts Patch TD 0.2 mg Th ADELA Administration Diazepam 2.5 mg 12/29/18 11:30 12/29/18 11:21 Valium IV 2.5 mg Q12HR ADELA Administration Enoxaparin Sodium 40 mg 12/28/18 22:00 12/28/18 22:34 Lovenox SUB-Q 40 mg QDAY@2200 ADELA Administration Hydralazine HCl 10 mg 12/28/18 09:00 Apresoline IV Q4H PRN SBP>170 or DBP>110 Dextrose 1,000 mls @ 100 mls/hr 12/27/18 22:00 12/29/18 06:31 D5w IV 100 mls/hr DIRECT ADELA Administration Levofloxacin/Dextrose 250 mg in 50 mls @ 50 mls/hr 12/29/18 10:00 12/29/18 11:15 Levaquin 250mg/50ml IV 01/02/19 10:59 50 mls/hr Q24HR ADELA Administration Methylprednisolone Sodium Succinate 20 mg 12/28/18 16:00 12/29/18 11:13 Solu-Medrol IV 20 mg Q12HR ADELA Administration Ondansetron HCl 4 mg 12/27/18 21:03 Zofran IV Q8H PRN Nausea And Vomiting Pantoprazole Sodium 40 mg 12/28/18 16:00 12/29/18 11:12 Protonix IV 40 mg QDAY ADELA Administration Sodium Chloride 10 ml 12/27/18 22:00 12/29/18 11:15 Sodium Chloride Flush Syringe 10 Ml IV 10 ml BID ADELA Administration Sodium Chloride 10 ml 12/27/18 21:03 12/28/18 16:05 Sodium Chloride Flush Syringe 10 Ml IV 10 ml PRN PRN Administration LINE FLUSH Nutrition/Malnutrition Assess - Dietary Evaluation Nutrition/Malnutrition Findings: Nutrition Notes Start: 12/28/18 10:43 Freq: Status: Active Protocol: Document 12/28/18 10:43 RS (Rec: 12/28/18 11:17 RS [id number]) Co-Sign 12/28/18 10:43 LM Nutrition Notes Need for Assessment generated from: MD Order,MST,Low BMI Initial or Follow up Assessment Current Diagnosis Acute Kidney Injury,COPD Other Pertinent Diagnosis Bipolar Disorder, Dysphagia, Hypernatremia Current Diet NPO Labs/Tests Na: 155 Glu:142 BUN:56 Pertinent Medications D5W Height 5 ft 4 in Weight 42.8 kg [place] Body Weight (kg) 54.54 BMI 16.2 Weight change and time frame Unable to retrieve wt hx Weight Status Underweight Subjective/Other Information MD consult for malnutrition and difficulty chewing. Unable to determine diet/wt hx d/t pt's nonverbal state. Pt has choking sensation when eating and spits fluid out when ingested. Barium swallow shows aspiration into tracheobroncial tree. Pt has no teeth and does not have dentures. Pt currently does not have PEG tube placement, and MD will consult for diet advancement. Noted severe temporal/clavical wasting. Burn Absent Trauma Absent GI Symptoms None Difficulty In Swallowing,Chewing Food Allergy No Current % PO Negligible Minimum of two criteria Yes Body Fat Depletion Moderate depletion (severe) Muscle Mass Moderate Depletion (severe) Protein-Calorie Malnutrition Severe #2 Nutrition Diagnosis Malnutrition Etiology dysphagia, missing teeth As Evidenced by Signs and Symptoms fat and muscle (temporal/ clavical) wasting #1 Nutrition Diagnosis Inadequate oral intake Etiology dysphagia, chewing difficulty As Evidenced by Signs and Symptoms BMI 16.2, pt missing teeth, failed barium swallow Is patient on ventilator? No Is Patient Ambulatory and/or Out of Bed No REE-([facility]-confined to bed) 1155.324 Kcal/Kg value to use for calculation 35 Approximate Energy Requirements Using 1498 kcal/Kg Calculation Used for Recommendations Kcal/kg Additional Notes PRO needs (1.2-1.5g/day): 51-64g/day Fluid: 1mL/day Nutrition Intervention Change Diet Order: NPO until MD advances diet Goal #1 F/U for diet advancement Goal #2 wt gain/maintenance Follow-Up By: 01/01/19 Additional Comments F/U for wt changes and diet advancement
[2018-12-29] MEDS ORDERED: D5/0.45NS 1,000 ML IV SCH (15:00)
[2018-12-29] MEDS: DUONEB *Not for PRN Use IH SCH ×4 (17:46→21:21)
[2018-12-29] MEDS: LOVENOX SUB-Q SCH (21:34)
[2018-12-30] MEDS: DUONEB *Not for PRN Use IH SCH ×3 (08:13→23:12)
--- NOTE | 2018-12-30 08:49 | Progress Note ---
Assessment and Plan Assessment and plan: Difficulty swallowing admitted to [place] Keep NPO GI consulted, following swallow eval iv fluids [place] barium swallow ordered done but incomplete, obstruction at level of Cricopharyngeus muscle Dehydration started on iv fluids Hypernatremia Much improved Contt D5/0.45NS COPD exacerbation Cont solu-medrol Cont Duoneb Bipolar disorder Full code status History Interval history: Difficulty swallowing Shortness of breath resolved Hospitalist Physical - Physical exam Narrative exam: Gen: Not in acute distress, lying in bed,malnourished HEENT: Normocephalic, atraumatic Neck: supple, no JVD Heart: S1 and S2 reg, no murmurs, rubs or gallop Lungs: bilateral rhonchi, wheeze Abd: soft, non tender , no rebound tenderness, non distended, normal BS, Ext: No edema, no clubbing, no cyanosis Neuro: Awake, alert, cannot understand speech - Constitutional Vitals: Temp Pulse Resp BP Pulse Ox 98.3 F 64 16 130/81 97 12/30/18 01:31 12/30/18 08:25 12/30/18 08:25 12/29/18 19:38 12/30/18 08:32 Results - Labs CBC & Chem 7: 12/29/18 03:25 12/29/18 03:25 Labs: Laboratory Last Values WBC 9.3 K/mm3 (4.5-11.0) 12/29/18 03:25 RBC 4.36 M/mm3 (3.65-5.03) 12/29/18 03:25 Hgb 14.4 gm/dl (10.1-14.3) H 12/29/18 03:25 Hct 42.9 % (30.3-42.9) D 12/29/18 03:25 MCV 98 fl (79-97) H 12/29/18 03:25 MCH 33 pg (28-32) H 12/29/18 03:25 MCHC 34 % (30-34) 12/29/18 03:25 RDW 16.2 % (13.2-15.2) H 12/29/18 03:25 Plt Count 168 K/mm3 (140-440) 12/29/18 03:25 Lymph % (Auto) 14.0 % (13.4-35.0) 12/28/18 05:00 [place] % (Auto) 9.1 % (0.0-7.3) H 12/28/18 05:00 Eos % (Auto) 0.1 % (0.0-4.3) 12/28/18 05:00 Baso % (Auto) 0.1 % (0.0-1.8) 12/28/18 05:00 Lymph # 2.3 K/mm3 (1.2-5.4) 12/28/18 05:00 [place] # 1.5 K/mm3 (0.0-0.8) H 12/28/18 05:00 Eos # 0.0 K/mm3 (0.0-0.4) 12/28/18 05:00 Baso # 0.0 K/mm3 (0.0-0.1) 12/28/18 05:00 Seg Neutrophils % 76.7 % (40.0-70.0) H 12/28/18 05:00 Seg Neutrophils # 12.8 K/mm3 (1.8-7.7) H 12/28/18 05:00 Sodium 145 mmol/L (137-145) 12/29/18 03:25 Potassium 3.6 mmol/L (3.6-5.0) 12/29/18 03:25 Chloride 107.5 mmol/L (98-107) H 12/29/18 03:25 Carbon Dioxide 25 mmol/L (22-30) 12/29/18 03:25 Anion Gap 16 mmol/L 12/29/18 03:25 BUN 26 mg/dL (7-17) H 12/29/18 03:25 Creatinine 0.7 mg/dL (0.7-1.2) 12/29/18 03:25 Estimated GFR > 60 ml/min 12/29/18 03:25 BUN/Creatinine Ratio 37 % 12/29/18 03:25 Glucose 156 mg/dL (65-100) H 12/29/18 03:25 Hemoglobin A1c 5.5 % (4-6) 12/27/18 12:34 Calcium 8.9 mg/dL (8.4-10.2) 12/29/18 03:25 Total Bilirubin 0.50 mg/dL (0.1-1.2) 12/28/18 05:00 AST 40 units/L (5-40) 12/28/18 05:00 ALT 68 units/L (7-56) H 12/28/18 05:00 Alkaline Phosphatase 81 units/L (35-129) 12/28/18 05:00 Total Protein 7.5 g/dL (6.3-8.2) 12/28/18 05:00 Albumin 4.8 g/dL (3.9-5) 12/28/18 05:00 Albumin/Globulin Ratio 1.8 % 12/28/18 05:00 Urine Color Yellow (Yellow) 12/27/18 Unknown Urine Turbidity Clear (Clear) 12/27/18 Unknown Urine pH 5.0 (5.0-7.0) 12/27/18 Unknown Ur Specific [place] 1.018 (1.003-1.030) 12/27/18 Unknown Urine Protein <15 mg/dl mg/dL (Negative) 12/27/18 Unknown Urine Glucose (UA) Neg mg/dL (Negative) 12/27/18 Unknown Urine Ketones Tr mg/dL (Negative) 12/27/18 Unknown Urine Blood Neg (Negative) 12/27/18 Unknown Urine Nitrite Neg (Negative) 12/27/18 Unknown Urine Bilirubin Neg (Negative) 12/27/18 Unknown Urine Urobilinogen < 2.0 mg/dL (<2.0) 12/27/18 Unknown Ur Leukocyte Esterase Neg (Negative) 12/27/18 Unknown Urine WBC (Auto) 1.0 /HPF (0.0-6.0) 12/27/18 Unknown Urine RBC (Auto) < 1.0 /HPF (0.0-6.0) 12/27/18 Unknown U Epithel Cells (Auto) < 1.0 /HPF (0-13.0) 12/27/18 Unknown Hyaline Casts 1 /LPF 12/27/18 Unknown Urine Mucus Few /HPF 12/27/18 Unknown Hepatitis A IgM Ab Non-reactive (NonReactive) 12/28/18 06:44 Hep Bs Antigen Non-reactive (Negative) 12/28/18 06:44 Hep B Core IgM Ab Non-reactive (NonReactive) 12/28/18 06:44 Hepatitis C Antibody Non-reactive (NonReactive) 12/28/18 06:44 Active Medications - Current Medications Current Medications: Generic Name Dose Route Start Last Admin Trade Name Freq PRN Reason Stop Dose Admin Acetaminophen 650 mg 12/27/18 21:03 Tylenol PO Q4H PRN Pain MILD(1-3)/Fever >100.5/ELIZABETH Albuterol/Ipratropium 1 ampul 12/30/18 20:00 Duoneb *Not For Prn Use* IH BID ADELA Amlodipine Besylate 5 mg 12/28/18 08:15 12/29/18 09:49 Norvasc PO 5 mg QDAY ADELA Administration Clonidine HCl 0.2 mg 12/28/18 10:00 12/28/18 09:55 Catapres-Tts Patch TD 0.2 mg Th ADELA Administration Diazepam 2.5 mg 12/29/18 11:30 12/29/18 21:30 Valium IV Not Given Q12HR ADELA Enoxaparin Sodium 40 mg 12/28/18 22:00 12/29/18 21:34 Lovenox SUB-Q 40 mg QDAY@2200 ADELA Administration Hydralazine HCl 10 mg 12/28/18 09:00 Apresoline IV Q4H PRN SBP>170 or DBP>110 Levofloxacin/Dextrose 250 mg in 50 mls @ 50 mls/hr 12/29/18 10:00 12/29/18 11:15 Levaquin 250mg/50ml IV 01/02/19 10:59 50 mls/hr Q24HR ADELA Administration Dextrose/Sodium Chloride 1,000 mls @ 75 mls/hr 12/29/18 15:00 12/29/18 18:32 D5/0.45ns IV 75 mls/hr DIRECT ADELA Administration Methylprednisolone Sodium Succinate 20 mg 12/28/18 16:00 12/29/18 21:31 Solu-Medrol IV 20 mg Q12HR ADELA Administration Ondansetron HCl 4 mg 12/27/18 21:03 Zofran IV Q8H PRN Nausea And Vomiting Pantoprazole Sodium 40 mg 12/28/18 16:00 12/29/18 11:12 Protonix IV 40 mg QDAY ADELA Administration Sodium Chloride 10 ml 12/27/18 22:00 12/29/18 21:32 Sodium Chloride Flush Syringe 10 Ml IV 10 ml BID ADELA Administration Sodium Chloride 10 ml 12/27/18 21:03 12/28/18 16:05 Sodium Chloride Flush Syringe 10 Ml IV 10 ml PRN PRN Administration LINE FLUSH Nutrition/Malnutrition Assess - Dietary Evaluation Nutrition/Malnutrition Findings: Nutrition Notes Start: 12/28/18 10:43 Freq: Status: Active Protocol: Document 12/28/18 10:43 RS (Rec: 12/28/18 11:17 RS [id number]) Co-Sign 12/28/18 10:43 LM Nutrition Notes Need for Assessment generated from: MD Order,MST,Low BMI Initial or Follow up Assessment Current Diagnosis Acute Kidney Injury,COPD Other Pertinent Diagnosis Bipolar Disorder, Dysphagia, Hypernatremia Current Diet NPO Labs/Tests Na: 155 Glu:142 BUN:56 Pertinent Medications D5W Height 5 ft 4 in Weight 42.8 kg [place] Body Weight (kg) 54.54 BMI 16.2 Weight change and time frame Unable to retrieve wt hx Weight Status Underweight Subjective/Other Information MD consult for malnutrition and difficulty chewing. Unable to determine diet/wt hx d/t pt's nonverbal state. Pt has choking sensation when eating and spits fluid out when ingested. Barium swallow shows aspiration into tracheobroncial tree. Pt has no teeth and does not have dentures. Pt currently does not have PEG tube placement, and MD will consult for diet advancement. Noted severe temporal/clavical wasting. Burn Absent Trauma Absent GI Symptoms None Difficulty In Swallowing,Chewing Food Allergy No Current % PO Negligible Minimum of two criteria Yes Body Fat Depletion Moderate depletion (severe) Muscle Mass Moderate Depletion (severe) Protein-Calorie Malnutrition Severe #2 Nutrition Diagnosis Malnutrition Etiology dysphagia, missing teeth As Evidenced by Signs and Symptoms fat and muscle (temporal/ clavical) wasting #1 Nutrition Diagnosis Inadequate oral intake Etiology dysphagia, chewing difficulty As Evidenced by Signs and Symptoms BMI 16.2, pt missing teeth, failed barium swallow Is patient on ventilator? No Is Patient Ambulatory and/or Out of Bed No REE-([facility]-confined to bed) 1155.324 Kcal/Kg value to use for calculation 35 Approximate Energy Requirements Using 1498 kcal/Kg Calculation Used for Recommendations Kcal/kg Additional Notes PRO needs (1.2-1.5g/day): 51-64g/day Fluid: 1mL/day Nutrition Intervention Change Diet Order: NPO until MD advances diet Goal #1 F/U for diet advancement Goal #2 wt gain/maintenance Follow-Up By: 01/01/19 Additional Comments F/U for wt changes and diet advancement
[2018-12-30] MEDS: LEVAQUIN 250MG/50ML 250 MG/50 ML BAG IV SCH (09:23)
[2018-12-30] MEDS: SOLU-Medrol IV SCH ×2 (09:23→22:28)
[2018-12-30] MEDS: PROTONIX IV SCH (09:23)
[2018-12-30] MEDS: SODIUM CHLORIDE FLUSH SYRINGE 10 ML IV SCH ×2 (09:24→22:34)
[2018-12-30] MEDS: NORVASC PO SCH (10:35)
[2018-12-30] MEDS: VALIUM IV SCH ×2 (10:35→22:28)
[2018-12-30 14:14] LABS: BUN/Creatinine Ratio 27; Blood Urea Nitrogen 19 mg/dL (7-17); Hemolysis Index 8
[2018-12-30 14:19] LABS: Hemoglobin 14.3 gm/dl (10.1-14.3); Mean Corpuscular HGB Conc 33 % (30-34); Mean Corpuscular Volume 99 fl (79-97); Platelet Count 158 K/mm3 (140-440); Red Blood Count 4.37 M/mm3 (3.65-5.03); Red Cell Distribution Width 16.2 % (13.2-15.2)
[2018-12-30] MEDS: D5W/0.45% NACL/KCL 20 MEQ 20 MEQ/1,000 ML BAG IV SCH (22:27)
[2018-12-30] MEDS: LOVENOX SUB-Q SCH (22:27)
[2018-12-31] MEDS: DUONEB *Not for PRN Use IH SCH ×4 (08:54→23:23)
[2018-12-31 10:33] LABS: BUN/Creatinine Ratio 33; Blood Urea Nitrogen 20 mg/dL (7-17); Calcium 8.7 mg/dL (8.4-10.2); Hemolysis Index 21
[2018-12-31] MEDS: PROTONIX IV SCH (10:44)
[2018-12-31] MEDS: LEVAQUIN 250MG/50ML 250 MG/50 ML BAG IV SCH (10:44)
[2018-12-31] MEDS: NORVASC PO SCH (10:45)
[2018-12-31] MEDS: SOLU-Medrol IV SCH ×2 (10:46→22:29)
[2018-12-31] MEDS: SODIUM CHLORIDE FLUSH SYRINGE 10 ML IV SCH ×2 (10:46→22:29)
--- NOTE | 2018-12-31 11:00 | Progress Note ---
Assessment and Plan Assessment and plan: Difficulty swallowing admitted to [facility] Keep NPO GI consulted, following swallow eval iv fluids FL barium swallow ordered done but incomplete, obstruction at level of Cricopharyngeus muscle May need PEG as per GI notes Dehydration started on iv fluids Hypernatremia Much improved Contt D5/0.45NS COPD exacerbation Cont solu-medrol Cont Duoneb Bipolar disorder Full code status History Interval history: Difficulty swallowing Shortness of breath resolved Hospitalist Physical - Physical exam Narrative exam: Gen: Not in acute distress, lying in bed,malnourished HEENT: Normocephalic, atraumatic Neck: supple, no JVD Heart: S1 and S2 reg, no murmurs, rubs or gallop Lungs: bilateral rhonchi, wheeze Abd: soft, non tender , no rebound tenderness, non distended, normal BS, Ext: No edema, no clubbing, no cyanosis Neuro: Awake, alert, cannot understand speech - Constitutional Vitals: Temp Pulse Resp BP Pulse Ox 98.5 F 62 18 159/70 93 12/31/18 07:16 12/31/18 09:10 12/31/18 09:10 12/31/18 07:16 12/31/18 08:54 Results - Labs CBC & Chem 7: 12/30/18 13:21 12/31/18 09:50 Labs: Laboratory Last Values WBC 7.8 K/mm3 (4.5-11.0) 12/30/18 13:21 RBC 4.37 M/mm3 (3.65-5.03) 12/30/18 13:21 Hgb 14.3 gm/dl (10.1-14.3) 12/30/18 13:21 Hct 43.0 % (30.3-42.9) H 12/30/18 13:21 MCV 99 fl (79-97) H 12/30/18 13:21 MCH 33 pg (28-32) H 12/30/18 13:21 MCHC 33 % (30-34) 12/30/18 13:21 RDW 16.2 % (13.2-15.2) H 12/30/18 13:21 Plt Count 158 K/mm3 (140-440) 12/30/18 13:21 Lymph % (Auto) 14.0 % (13.4-35.0) 12/28/18 05:00 [place] % (Auto) 9.1 % (0.0-7.3) H 12/28/18 05:00 Eos % (Auto) 0.1 % (0.0-4.3) 12/28/18 05:00 Baso % (Auto) 0.1 % (0.0-1.8) 12/28/18 05:00 Lymph # 2.3 K/mm3 (1.2-5.4) 12/28/18 05:00 [place] # 1.5 K/mm3 (0.0-0.8) H 12/28/18 05:00 Eos # 0.0 K/mm3 (0.0-0.4) 12/28/18 05:00 Baso # 0.0 K/mm3 (0.0-0.1) 12/28/18 05:00 Seg Neutrophils % 76.7 % (40.0-70.0) H 12/28/18 05:00 Seg Neutrophils # 12.8 K/mm3 (1.8-7.7) H 12/28/18 05:00 Sodium 143 mmol/L (137-145) 12/31/18 09:50 Potassium 3.8 mmol/L (3.6-5.0) 12/31/18 09:50 Chloride 103.8 mmol/L (98-107) 12/31/18 09:50 Carbon Dioxide 22 mmol/L (22-30) 12/31/18 09:50 Anion Gap 21 mmol/L 12/31/18 09:50 BUN 20 mg/dL (7-17) H 12/31/18 09:50 Creatinine 0.6 mg/dL (0.7-1.2) L 12/31/18 09:50 Estimated GFR > 60 ml/min 12/31/18 09:50 BUN/Creatinine Ratio 33 % 12/31/18 09:50 Glucose 86 mg/dL (65-100) 12/31/18 09:50 Hemoglobin A1c 5.5 % (4-6) 12/27/18 12:34 Calcium 8.7 mg/dL (8.4-10.2) 12/31/18 09:50 Total Bilirubin 0.50 mg/dL (0.1-1.2) 12/28/18 05:00 AST 40 units/L (5-40) 12/28/18 05:00 ALT 68 units/L (7-56) H 12/28/18 05:00 Alkaline Phosphatase 81 units/L (35-129) 12/28/18 05:00 Total Protein 7.5 g/dL (6.3-8.2) 12/28/18 05:00 Albumin 4.8 g/dL (3.9-5) 12/28/18 05:00 Albumin/Globulin Ratio 1.8 % 12/28/18 05:00 Urine Color Yellow (Yellow) 12/27/18 Unknown Urine Turbidity Clear (Clear) 12/27/18 Unknown Urine pH 5.0 (5.0-7.0) 12/27/18 Unknown Ur Specific [place] 1.018 (1.003-1.030) 12/27/18 Unknown Urine Protein <15 mg/dl mg/dL (Negative) 12/27/18 Unknown Urine Glucose (UA) Neg mg/dL (Negative) 12/27/18 Unknown Urine Ketones Tr mg/dL (Negative) 12/27/18 Unknown Urine Blood Neg (Negative) 12/27/18 Unknown Urine Nitrite Neg (Negative) 12/27/18 Unknown Urine Bilirubin Neg (Negative) 12/27/18 Unknown Urine Urobilinogen < 2.0 mg/dL (<2.0) 12/27/18 Unknown Ur Leukocyte Esterase Neg (Negative) 12/27/18 Unknown Urine WBC (Auto) 1.0 /HPF (0.0-6.0) 12/27/18 Unknown Urine RBC (Auto) < 1.0 /HPF (0.0-6.0) 12/27/18 Unknown U Epithel Cells (Auto) < 1.0 /HPF (0-13.0) 12/27/18 Unknown Hyaline Casts 1 /LPF 12/27/18 Unknown Urine Mucus Few /HPF 12/27/18 Unknown Hepatitis A IgM Ab Non-reactive (NonReactive) 12/28/18 06:44 Hep Bs Antigen Non-reactive (Negative) 12/28/18 06:44 Hep B Core IgM Ab Non-reactive (NonReactive) 12/28/18 06:44 Hepatitis C Antibody Non-reactive (NonReactive) 12/28/18 06:44 Active Medications - Current Medications Current Medications: Generic Name Dose Route Start Last Admin Trade Name Freq PRN Reason Stop Dose Admin Acetaminophen 650 mg 12/27/18 21:03 Tylenol PO Q4H PRN Pain MILD(1-3)/Fever >100.5/ELIZABETH Albuterol/Ipratropium 1 ampul 12/30/18 20:00 12/31/18 09:50 Duoneb *Not For Prn Use* IH Not Given BID ADELA Amlodipine Besylate 5 mg 12/28/18 08:15 12/31/18 10:45 Norvasc PO Not Given QDAY ADELA Clonidine HCl 0.2 mg 12/28/18 10:00 12/28/18 09:55 Catapres-Tts Patch TD 0.2 mg Th ADELA Administration Diazepam 2.5 mg 12/29/18 11:30 12/30/18 22:28 Valium IV 2.5 mg Q12HR ADELA Administration Enoxaparin Sodium 40 mg 12/28/18 22:00 12/30/18 22:27 Lovenox SUB-Q 40 mg QDAY@2200 ADELA Administration Hydralazine HCl 10 mg 12/28/18 09:00 Apresoline IV Q4H PRN SBP>170 or DBP>110 Levofloxacin/Dextrose 250 mg in 50 mls @ 50 mls/hr 12/29/18 10:00 12/31/18 10:44 Levaquin 250mg/50ml IV 01/02/19 10:59 50 mls/hr Q24HR ADELA Administration Potassium Chloride/Dextrose/Sod Cl 20 meq in 1,000 mls @ 50 mls/hr 12/30/18 17:00 12/30/18 22:27 D5w/0.45% Nacl/Kcl 20 Meq IV 50 mls/hr DIRECT ADELA Administration Methylprednisolone Sodium Succinate 20 mg 12/28/18 16:00 12/31/18 10:46 Solu-Medrol IV 20 mg Q12HR ADELA Administration Ondansetron HCl 4 mg 12/27/18 21:03 Zofran IV Q8H PRN Nausea And Vomiting Pantoprazole Sodium 40 mg 12/28/18 16:00 12/31/18 10:44 Protonix IV 40 mg QDAY ADELA Administration Sodium Chloride 10 ml 12/27/18 22:00 12/31/18 10:46 Sodium Chloride Flush Syringe 10 Ml IV 10 ml BID ADELA Administration Sodium Chloride 10 ml 12/27/18 21:03 12/28/18 16:05 Sodium Chloride Flush Syringe 10 Ml IV 10 ml PRN PRN Administration LINE FLUSH Nutrition/Malnutrition Assess - Dietary Evaluation Nutrition/Malnutrition Findings: Nutrition Notes Start: 12/28/18 10:43 Freq: Status: Active Protocol: Document 12/28/18 10:43 RS (Rec: 12/28/18 11:17 RS [id number]) Co-Sign 12/28/18 10:43 LM Nutrition Notes Need for Assessment generated from: MD Order,MST,Low BMI Initial or Follow up Assessment Current Diagnosis Acute Kidney Injury,COPD Other Pertinent Diagnosis Bipolar Disorder, Dysphagia, Hypernatremia Current Diet NPO Labs/Tests Na: 155 Glu:142 BUN:56 Pertinent Medications D5W Height 5 ft 4 in Weight 42.8 kg [place] Body Weight (kg) 54.54 BMI 16.2 Weight change and time frame Unable to retrieve wt hx Weight Status Underweight Subjective/Other Information MD consult for malnutrition and difficulty chewing. Unable to determine diet/wt hx d/t pt's nonverbal state. Pt has choking sensation when eating and spits fluid out when ingested. Barium swallow shows aspiration into tracheobroncial tree. Pt has no teeth and does not have dentures. Pt currently does not have PEG tube placement, and MD will consult for diet advancement. Noted severe temporal/clavical wasting. Burn Absent Trauma Absent GI Symptoms None Difficulty In Swallowing,Chewing Food Allergy No Current % PO Negligible Minimum of two criteria Yes Body Fat Depletion Moderate depletion (severe) Muscle Mass Moderate Depletion (severe) Protein-Calorie Malnutrition Severe #2 Nutrition Diagnosis Malnutrition Etiology dysphagia, missing teeth As Evidenced by Signs and Symptoms fat and muscle (temporal/ clavical) wasting #1 Nutrition Diagnosis Inadequate oral intake Etiology dysphagia, chewing difficulty As Evidenced by Signs and Symptoms BMI 16.2, pt missing teeth, failed barium swallow Is patient on ventilator? No Is Patient Ambulatory and/or Out of Bed No REE-([facility]-confined to bed) 1155.324 Kcal/Kg value to use for calculation 35 Approximate Energy Requirements Using 1498 kcal/Kg Calculation Used for Recommendations Kcal/kg Additional Notes PRO needs (1.2-1.5g/day): 51-64g/day Fluid: 1mL/day Nutrition Intervention Change Diet Order: NPO until MD advances diet Goal #1 F/U for diet advancement Goal #2 wt gain/maintenance Follow-Up By: 01/01/19 Additional Comments F/U for wt changes and diet advancement
[2018-12-31] MEDS: VALIUM IV SCH ×2 (11:49→22:29)
--- NOTE | 2018-12-31 16:46 | Gastroenterology Progress Note ---
Assessment and Plan oropharyngeal dysphagia - discussed with pt's daughter today (phone number [phone]) who agreed to proceed with egd/peg tube. will plan for procedure tomorrow. Subjective Date of service: 12/31/18 Principal diagnosis: oropharyngeal dysphagia Interval history: pt seen and examined; failed swallow study (? blockage/achalasia at cricopharyngeal muscle) discussed with pt's daughter over phone who states pt had peg tube 4 years ago temporarily for similar inability to swallow. she has been having difficulty with po intake for "awhile" now. Objective - Constitutional Vitals: Temp Pulse Resp BP Pulse Ox 98.5 F 62 18 159/70 93 12/31/18 07:16 12/31/18 09:10 12/31/18 09:10 12/31/18 07:16 12/31/18 08:54 General appearance: no acute distress - Respiratory Respiratory effort: normal Respiratory: bilateral: CTA - Cardiovascular Rhythm: regular Heart Sounds: Present: S1 & S2 - Gastrointestinal General gastrointestinal: Present: soft, non-tender, non-distended - Labs CBC & Chem 7: 12/30/18 13:21 12/31/18 09:50 Labs: Laboratory Results - last 24 hr 12/31/18 09:50 Sodium 143 Potassium 3.8 Chloride 103.8 Carbon Dioxide 22 Anion Gap 21 BUN 20 H Creatinine 0.6 L Estimated GFR > 60 BUN/Creatinine Ratio 33 Glucose 86 Calcium 8.7
[2018-12-31] MEDS: D5W/0.45% NACL/KCL 20 MEQ 20 MEQ/1,000 ML BAG IV SCH (19:33)
[2018-12-31] MEDS: LOVENOX SUB-Q SCH (22:28)
[2019-01-01 07:43] LABS: Hematocrit 42.2 % (30.3-42.9); Hemoglobin 14.5 gm/dl (10.1-14.3); Mean Corpuscular HGB Conc 34 % (30-34); Mean Corpuscular Volume 97 fl (79-97); Platelet Count 176 K/mm3 (140-440); Red Blood Count 4.37 M/mm3 (3.65-5.03)
[2019-01-01 08:00] LABS: BUN/Creatinine Ratio 33; Blood Urea Nitrogen 20 mg/dL (7-17); Calcium 8.8 mg/dL (8.4-10.2); Hemolysis Index 16
[2019-01-01] MEDS ORDERED: ANCEF/STERILE WATER 2 GM/20 ML 2 GM/20 ML SYRINGE IV NR (09:00)
[2019-01-01] MEDS ORDERED: NACL 0.9% 1000 ML 1,000 ML IV SCH (09:00)
[2019-01-01] MEDS: DUONEB *Not for PRN Use IH SCH ×2 (09:47→22:19)
[2019-01-01] MEDS ORDERED: WATER FOR IRRIG STERILE IR ONE (10:49)
[2019-01-01] MEDS: LEVAQUIN 250MG/50ML 250 MG/50 ML BAG IV SCH (10:50)
[2019-01-01] MEDS: PROTONIX IV SCH (10:50)
[2019-01-01] MEDS: SOLU-Medrol IV SCH ×2 (10:50→22:24)
[2019-01-01] MEDS: SODIUM CHLORIDE FLUSH SYRINGE 10 ML IV SCH ×2 (10:52→22:25)
[2019-01-01] MEDS: NORVASC PO SCH (11:00)
[2019-01-01] MEDS: VALIUM IV SCH ×2 (11:35→22:23)
[2019-01-01] MEDS ORDERED: ANCEF/STERILE WATER 2 GM/20 ML 2 GM/20 ML SYRINGE IV ONE (12:01)
--- NOTE | 2019-01-01 12:44 | Anesthesia Day of Surgery ---
Anesthesia Day of Surgery - Day of Surgery Patient Examined: Yes Patient H&P Reviewed: Yes Patient is NPO: Yes
--- NOTE | 2019-01-01 12:44 | Anesthesia Consultation ---
Anesthesia Consult and Med Hx Date of service: 01/01/19 - Airway Anesthetic Teeth Evaluation: Edentulous ROM Head & Neck: Adequate Mental/Hyoid Distance: Adequate Mallampati Class: Class II Intubation Access Assessment: Good - Pulmonary Exam CTA: Yes - Cardiac Exam Cardiac Exam: RRR - Pre-Operative Health Status ASA Pre-Surgery Classification: ASA3 Proposed Anesthetic Plan: MAC - Pulmonary COPD: Yes (On O2 NC) - Central Nervous System Hx Psychiatric Problems: Yes
[2019-01-01] MEDS ORDERED: DIPRIVAN 10 MG/ML IV ONE (13:13)
--- NOTE | 2019-01-01 13:48 | Post Operative Note ---
Pre-op diagnosis: dysphagia, weight loss Post-op diagnosis: same Findings: EGD: hiatal hernia - gastritis - negative other - 20F pull peg placed, bumper at 3 cm Procedure: EGD/PEG Anesthesia: MAC Surgeon: BRANDIE RAJAN Estimated blood loss: none Pathology: list Specimen disposition: to lab Condition: stable Disposition: floor
[2019-01-01] MEDS ORDERED: PANCREAZE DR 10,500 UNIT FEEDTUBE PRN (14:27)
[2019-01-01] MEDS ORDERED: SIMPLE SYRUP FEEDTUBE PRN ×2 (14:27)
[2019-01-01] MEDS ORDERED: SODIUM BICARBONATE FEEDTUBE PRN (14:27)
--- NOTE | 2019-01-01 14:34 | Progress Note ---
Assessment and Plan Assessment and plan: Difficulty swallowing admitted to [place] Keep NPO GI consulted, following iv fluids FL barium swallow ordered done but incomplete, obstruction at level of Cricopharyngeus muscle PEG as per GI notes Severe malnutrition Acute metabolic encephalopathy Dehydration started on iv fluids Hypernatremia Much improved Contt D5/0.45NS COPD exacerbation Cont solu-medrol Cont Duoneb Bipolar disorder Full code status PEG tube placed today. Poss dc tomorrow if ok with GI History Interval history: Difficulty swallowing Shortness of breath resolved Hospitalist Physical - Physical exam Narrative exam: Gen: Not in acute distress, lying in bed,malnourished HEENT: Normocephalic, atraumatic Neck: supple, no JVD Heart: S1 and S2 reg, no murmurs, rubs or gallop Lungs: bilateral rhonchi, wheeze Abd: soft, non tender , no rebound tenderness, non distended, normal BS, Ext: No edema, no clubbing, no cyanosis Neuro: Awake, alert, cannot understand speech - Constitutional Vitals: Temp Pulse Resp BP Pulse Ox 98.2 F 59 L 16 128/73 100 01/01/19 13:47 01/01/19 14:02 01/01/19 14:02 01/01/19 14:02 01/01/19 14:02 Results - Labs CBC & Chem 7: 01/01/19 06:47 01/01/19 06:47 Labs: Laboratory Last Values WBC 6.4 K/mm3 (4.5-11.0) 01/01/19 06:47 RBC 4.37 M/mm3 (3.65-5.03) 01/01/19 06:47 Hgb 14.5 gm/dl (10.1-14.3) H 01/01/19 06:47 Hct 42.2 % (30.3-42.9) 01/01/19 06:47 MCV 97 fl (79-97) 01/01/19 06:47 MCH 33 pg (28-32) H 01/01/19 06:47 MCHC 34 % (30-34) 01/01/19 06:47 RDW 16.0 % (13.2-15.2) H 01/01/19 06:47 Plt Count 176 K/mm3 (140-440) 01/01/19 06:47 Lymph % (Auto) 14.0 % (13.4-35.0) 12/28/18 05:00 [place] % (Auto) 9.1 % (0.0-7.3) H 12/28/18 05:00 Eos % (Auto) 0.1 % (0.0-4.3) 12/28/18 05:00 Baso % (Auto) 0.1 % (0.0-1.8) 12/28/18 05:00 Lymph # 2.3 K/mm3 (1.2-5.4) 12/28/18 05:00 [place] # 1.5 K/mm3 (0.0-0.8) H 12/28/18 05:00 Eos # 0.0 K/mm3 (0.0-0.4) 12/28/18 05:00 Baso # 0.0 K/mm3 (0.0-0.1) 12/28/18 05:00 Seg Neutrophils % 76.7 % (40.0-70.0) H 12/28/18 05:00 Seg Neutrophils # 12.8 K/mm3 (1.8-7.7) H 12/28/18 05:00 Sodium 143 mmol/L (137-145) 01/01/19 06:47 Potassium 4.3 mmol/L (3.6-5.0) 01/01/19 06:47 Chloride 103.7 mmol/L (98-107) 01/01/19 06:47 Carbon Dioxide 24 mmol/L (22-30) 01/01/19 06:47 Anion Gap 20 mmol/L 01/01/19 06:47 BUN 20 mg/dL (7-17) H 01/01/19 06:47 Creatinine 0.6 mg/dL (0.7-1.2) L 01/01/19 06:47 Estimated GFR > 60 ml/min 01/01/19 06:47 BUN/Creatinine Ratio 33 % 01/01/19 06:47 Glucose 103 mg/dL (65-100) H 01/01/19 06:47 Hemoglobin A1c 5.5 % (4-6) 12/27/18 12:34 Calcium 8.8 mg/dL (8.4-10.2) 01/01/19 06:47 Total Bilirubin 0.50 mg/dL (0.1-1.2) 12/28/18 05:00 AST 40 units/L (5-40) 12/28/18 05:00 ALT 68 units/L (7-56) H 12/28/18 05:00 Alkaline Phosphatase 81 units/L (35-129) 12/28/18 05:00 Total Protein 7.5 g/dL (6.3-8.2) 12/28/18 05:00 Albumin 4.8 g/dL (3.9-5) 12/28/18 05:00 Albumin/Globulin Ratio 1.8 % 12/28/18 05:00 Urine Color Yellow (Yellow) 12/27/18 Unknown Urine Turbidity Clear (Clear) 12/27/18 Unknown Urine pH 5.0 (5.0-7.0) 12/27/18 Unknown Ur Specific [place] 1.018 (1.003-1.030) 12/27/18 Unknown Urine Protein <15 mg/dl mg/dL (Negative) 12/27/18 Unknown Urine Glucose (UA) Neg mg/dL (Negative) 12/27/18 Unknown Urine Ketones Tr mg/dL (Negative) 12/27/18 Unknown Urine Blood Neg (Negative) 12/27/18 Unknown Urine Nitrite Neg (Negative) 12/27/18 Unknown Urine Bilirubin Neg (Negative) 12/27/18 Unknown Urine Urobilinogen < 2.0 mg/dL (<2.0) 12/27/18 Unknown Ur Leukocyte Esterase Neg (Negative) 12/27/18 Unknown Urine WBC (Auto) 1.0 /HPF (0.0-6.0) 12/27/18 Unknown Urine RBC (Auto) < 1.0 /HPF (0.0-6.0) 12/27/18 Unknown U Epithel Cells (Auto) < 1.0 /HPF (0-13.0) 12/27/18 Unknown Hyaline Casts 1 /LPF 12/27/18 Unknown Urine Mucus Few /HPF 12/27/18 Unknown Hepatitis A IgM Ab Non-reactive (NonReactive) 12/28/18 06:44 Hep Bs Antigen Non-reactive (Negative) 12/28/18 06:44 Hep B Core IgM Ab Non-reactive (NonReactive) 12/28/18 06:44 Hepatitis C Antibody Non-reactive (NonReactive) 12/28/18 06:44 Active Medications - Current Medications Current Medications: Generic Name Dose Route Start Last Admin Trade Name Freq PRN Reason Stop Dose Admin Acetaminophen 650 mg 12/27/18 21:03 Tylenol PO Q4H PRN Pain MILD(1-3)/Fever >100.5/ELIZABETH Albuterol/Ipratropium 1 ampul 12/30/18 20:00 01/01/19 09:47 Duoneb *Not For Prn Use* IH 1 ampul BID ADELA Administration Amlodipine Besylate 5 mg 12/28/18 08:15 01/01/19 11:00 Norvasc PO Not Given QDAY ADELA Lipase/Protease/Amylase 1 each 01/01/19 14:27 Pancreaze 10,500 Unit FEEDTUBE PRN PRN For Clogged Feeding Tube Clonidine HCl 0.2 mg 12/28/18 10:00 12/28/18 09:55 Catapres-Tts Patch TD 0.2 mg Th ADELA Administration Diazepam 2.5 mg 12/29/18 11:30 12/31/18 22:29 Valium IV 2.5 mg Q12HR ADELA Administration Enoxaparin Sodium 40 mg 12/28/18 22:00 12/31/18 22:28 Lovenox SUB-Q 40 mg QDAY@2200 ADELA Administration Hydralazine HCl 10 mg 12/28/18 09:00 Apresoline IV Q4H PRN SBP>170 or DBP>110 Levofloxacin/Dextrose 250 mg in 50 mls @ 50 mls/hr 12/29/18 10:00 01/01/19 10:50 Levaquin 250mg/50ml IV 01/02/19 10:59 50 mls/hr Q24HR ADELA Administration Potassium Chloride/Dextrose/Sod Cl 20 meq in 1,000 mls @ 50 mls/hr 12/30/18 17:00 12/31/18 19:33 D5w/0.45% Nacl/Kcl 20 Meq IV 50 mls/hr DIRECT ADELA Administration Sodium Chloride 1,000 mls @ 50 mls/hr 01/01/19 09:00 01/01/19 13:26 Nacl 0.9% 1000 Ml IV 50 mls/hr DIRECT ADELA Administration Cefazolin Sodium 2 gm in 20 mls @ 80 mls/hr 01/01/19 09:00 Ancef/Sterile Water 2 Gm/20 Ml IV 01/01/19 23:59 PREOP NR Protocol Methylprednisolone Sodium Succinate 20 mg 12/28/18 16:00 01/01/19 10:50 Solu-Medrol IV 20 mg Q12HR ADELA Administration Ondansetron HCl 4 mg 12/27/18 21:03 Zofran IV Q8H PRN Nausea And Vomiting Pantoprazole Sodium 40 mg 12/28/18 16:00 01/01/19 10:50 Protonix IV 40 mg QDAY ADELA Administration Simple Syrup 15 ml 01/01/19 14:27 Simple Syrup FEEDTUBE PRN PRN Hypoglycemia Simple Syrup 30 ml 01/01/19 14:27 Simple Syrup FEEDTUBE PRN PRN Hypoglycemia Sodium Bicarbonate 325 mg 01/01/19 14:27 Sodium Bicarbonate FEEDTUBE PRN PRN For Clogged Feeding Tube Sodium Chloride 10 ml 12/27/18 22:00 01/01/19 10:52 Sodium Chloride Flush Syringe 10 Ml IV 10 ml BID ADELA Administration Sodium Chloride 10 ml 12/27/18 21:03 12/28/18 16:05 Sodium Chloride Flush Syringe 10 Ml IV 10 ml PRN PRN Administration LINE FLUSH Nutrition/Malnutrition Assess - Dietary Evaluation Nutrition/Malnutrition Findings: Nutrition Notes Start: 12/28/18 10:43 Freq: Status: Active Protocol: Document 01/01/19 14:19 [email or web address] (Rec: 01/01/19 14:27 [id number]) Nutrition Notes Need for Assessment generated from: MD Order Initial or Follow up Reassessment Other Pertinent Diagnosis Severe dysphagia, Dehydration, COPD exacerbation Current Diet NPO Labs/Tests Reviewed Pertinent Medications Solumedrol Height 5 ft 4 in Weight 46.3 kg [place] Body Weight (kg) 54.54 BMI 17.5 Subjective/Other Information RD consulted for TF; pt s/p PEG placement. Burn Absent Trauma Absent Minimum of two criteria Yes Body Fat Depletion Moderate depletion (severe) Muscle Mass Moderate Depletion (severe) Protein-Calorie Malnutrition Severe #2 Nutrition Diagnosis Malnutrition Diagnosis Progress(for reassessment Continues documentation) #1 Nutrition Diagnosis Inadequate oral intake Diagnosis Progress(for reassessment Continues documentation) Is patient on ventilator? No Is Patient Ambulatory and/or Out of Bed No REE-([place]-confined to bed) 1197.288 Kcal/Kg value to use for calculation 35 Approximate Energy Requirements Using 1621 kcal/Kg Calculation Used for Recommendations Kcal/kg Additional Notes Pro needs 1.2-1.5g/k-69g/ day Fluid needs 1ml/kcal Nutrition Intervention Nutrition Support: Jevity 1.2 at 55ml/hr with 100ml water flush q4h. Kcal 1,584 Protein (gm) 73 Carbohydrates (gm) 224 Fat (gm) 52 Fluid (mL) 1,065 Fiber (gm) 24 Goal #1 TF tolerance Goal #2 TF to meet 100% energy and pro needs Goal #3 Wt maintenance and/or gain Anticipated Discharge Needs: Continue TF if necessary Follow-Up By: 01/03/19 Additional Comments F/U: new TF
--- NOTE | 2019-01-01 17:44 | Operative Report ---
PROCEDURE: Esophagogastroduodenoscopy with percutaneous endoscopic gastrostomy placement. INDICATION: 1. Dysphagia. 2. Weight loss. MEDICATIONS: Propofol per APPLICATION SUPPORT. COMPLICATIONS: None. DESCRIPTION OF PROCEDURE: The patient was brought to procedure suite. The patient had the procedure discussed with her and family at length. All risks, complications, and benefits were discussed after which consent was gotten for the procedure performed. The patient was placed in supine position. Mouth block was placed in the patient's oral cavity. After adequate sedation medication as above, endoscope placed in the mouth and brought to level of the second portion of duodenum. Retroflexion view performed. The patient's vital signs remained stable throughout the procedure. FINDINGS: There was a small hiatal hernia at GE junction at 38 cm from the gums. Esophagus otherwise appeared grossly normal. Area of previous PEG tube was noted in the gastric body and appeared intact. Mild gastritis noted in distal stomach. Stomach otherwise appeared intact. The duodenum appeared to be ____ intact. Retroflexion view performed in the stomach showed no other pathology other than noted above. After this, especially using standard technique and transillumination, ____ placement of PEG was found in the gastric body. Using standard technique, a 20-[place] pull PEG was then placed. Bump was noted to be at 3 cm. Post-procedure, the patient was satisfactory. The patient tolerated the procedure well. No complications during the procedure. IMPRESSION: 1. Hiatal hernia. 2. Otherwise, normal esophagus. 3. Previous percutaneous endoscopic gastrostomy tube site noted. 4. Gastritis without biopsies performed. 5. Otherwise, normal esophagogastroduodenoscopy. 6. Percutaneous endoscopic gastrostomy tube placed without obvious complications. RECOMMENDATIONS: 1. Standard PEG tube orders, see chart. 2. Vital signs, bleeding, infection. 3. We will followup in a.m. JOB# [id number] CAB/NTS
[2019-01-01] MEDS: LOVENOX SUB-Q SCH (22:23)
[2019-01-02] MEDS: D5W/0.45% NACL/KCL 20 MEQ 20 MEQ/1,000 ML BAG IV SCH ×2 (00:33→23:24)
--- NOTE | 2019-01-02 08:10 | Discharge Summary ---
Providers - Providers Date of Admission: 12/28/18 15:45 Attending physician: DEX PROCTOR MD 12/27/18 11:54 Consult to Case Management [CONS] Stat Services Needed at Discharge: Other Notified:: yes 12/27/18 21:03 Consult to Physician [CONS] Routine Comment: JUDI Consulting Provider: FRANCIA GARCIA Physician Instructions: CONSULT WAS CALLED TO ANGELIQUE Reason For Exam: dysphagia 12/27/18 21:05 Consult to Dietitian/Nutrition [CONS] Routine Physician Instructions: Reason For Exam: Reason for Consult: Nutrition Recommendations Reason for Consult: Malnutrition 12/28/18 08:40 Physical Therapy Evaluation and Treat [CONS] Routine Comment: Reason For Exam: Weakness 12/28/18 15:16 Speech Therapy Evaluation and Treat [CONS] Routine Reason For Exam: difficulty swallowing, speech 12/28/18 16:01 Occupational Therapy Evaluate and Treat [CONS] Routine Comment: Reason For Exam: Debility 01/01/19 13:48 Consult to Dietitian/Nutrition [CONS] Routine Physician Instructions: Reason For Exam: Reason for Consult: post-peg Primary care physician: PRIYA MARTINEZ MD Hospitalization Condition: Stable Hospital course: Patient is a 63-year-old female with past medical history of mental health disorder and COPD is currently bedridden presents to emergency department via EMS from [facility] for cough, chest congestion and sputum production breath and also choking sensation with poor po intake over several months and evidenced by weakness and hypernatremia on admission with DEEPAK secondary to vasomotor nephropathy. Patient states she has not eating well for the past few weeks but denies any nausea, vomiting, diarrhea, abdominal pain or chest pain. She was given DuoNeb 2 facility and was asked to department for further evaluation and treatment options. She denies any tobacco usage ,hemoptysis and hematemesis and hematochezia. The patient was treated for COPD, And associated complaints and showed improve ment. Following discussion with family a PEG tube was placed and the patient is tolerating Diet. Severe Dysphagia secondary to Oropharngeal dysphagia s/p PEG tube placement COPD exacerbation Acute Respiratory failure Hypernatermia- RESOLVED Bipolar Disorder HTN GI Peripheral Neuropathy Severe malnutrition Acute metabolic encephalopathy PLAN Continue supportive care [place] barium swallow ordered done but incomplete, obstruction at level of Cricopharyngeus muscle s/p PEG placement Increase Norvasc to 10mg, and based on BP may discontinue Clonidine patch. Discontinue IV Fluids Patient is cleared for discharge but pending placement and level 2 clearance. DVT/GI precaution and fall precautions Disposition: [id number]/TX-03 SNF [facility] Time spent for discharge: 35 mins Core Measure Documentation - Palliative Care Palliative Care/ Comfort Measures: Not Applicable - Core Measures Any of the following diagnoses?: none Exam - Constitutional Vitals: Temp Pulse Resp BP Pulse Ox 98.9 F 81 18 142/87 99 01/02/19 02:23 01/02/19 02:23 01/02/19 02:23 01/02/19 02:23 01/02/19 02:23 Plan Activity: advance as tolerated, fall precautions Diet: per dietitian instruction (Tube feed) Special Instructions: record daily weights, record daily BP diary, follow up in rehab Follow up with: PRIYA MARTINEZ MD [Primary Care Provider] - 7 Days SORAIDA HUSSEIN MD [Staff Physician] - 7 Days Prescriptions: Ipratropium/Albuterol Sulfate [DUONEB *Not for PRN Use*] 1 ampul IH BID #60 ampul.neb amLODIPine [Norvasc] 5 mg PO QDAY #30 tablet Oxycodone HCl/Acetaminophen [Percocet 10/325 mg] 1 each PO BID PRN #10 PRN Reason: Pain
[2019-01-02 09:11] LABS: BUN/Creatinine Ratio 44; Blood Urea Nitrogen 22 mg/dL (7-17); Calcium 8.8 mg/dL (8.4-10.2); Hemolysis Index 10
--- NOTE | 2019-01-02 10:31 | Gastroenterology Progress Note ---
Assessment and Plan 1.oropharyngeal dysphagia -s/p EGD with PEG placement yesterday -PEG site this am w/o s/s of infection or bleeding- upon exam, bumper off loaded to prevent skin breakdown -tolerating TFs- continue per dietary recommendations -split gauze PRN -continue supportive care and daily PEG care -no further recommendations per GI standpoint -will sign off, please call if needed Subjective Date of service: 01/02/19 Principal diagnosis: oropharyngeal dysphagia Interval history: No acute distress. PEG site this am with scant amount of old blood but no re dness, odor, swelling, drainage, or active bleeding. Tolerating TFs w/o difficulty. Objective - Constitutional Vitals: Temp Pulse Resp BP Pulse Ox 98.3 F 77 18 149/91 99 01/02/19 08:00 01/02/19 08:00 01/02/19 08:00 01/02/19 08:00 01/02/19 08:00 General appearance: no acute distress - Respiratory Respiratory effort: normal - Cardiovascular Rhythm: regular - Gastrointestinal General gastrointestinal: Present: soft, non-tender, non-distended, normal bowel sounds, other (+PEG) - Labs CBC & Chem 7: 01/01/19 06:47 01/02/19 08:32 Labs: Laboratory Results - last 24 hr 01/02/19 01/02/19 01/02/19 00:56 06:52 08:32 Sodium 139 Potassium 4.3 Chloride 102.0 Carbon Dioxide 25 Anion Gap 16 BUN 22 H Creatinine 0.5 L Estimated GFR > 60 BUN/Creatinine Ratio 44 Glucose 115 H POC Glucose 108 H 138 H Calcium 8.8
[2019-01-02] MEDS: DUONEB *Not for PRN Use IH SCH ×2 (10:55→20:30)
[2019-01-02] MEDS: NORVASC PO SCH (13:46)
[2019-01-02] MEDS: LEVAQUIN 250MG/50ML 250 MG/50 ML BAG IV SCH (13:46)
[2019-01-02] MEDS: PROTONIX IV SCH (13:46)
[2019-01-02] MEDS: SOLU-Medrol IV SCH ×2 (13:47→22:15)
[2019-01-02] MEDS: SODIUM CHLORIDE FLUSH SYRINGE 10 ML IV SCH ×2 (13:47→22:15)
[2019-01-02] MEDS: VALIUM IV SCH ×2 (13:54→22:15)
--- NOTE | 2019-01-02 18:33 | Progress Note ---
Assessment and Plan Assessment and plan: Patient is a 63-year-old female with past medical history of mental health disorder and COPD is currently bedridden presents to emergency department via EMS from [facility] for cough, chest congestion and sputum production breath and also choking sensation with poor po intake over several months and evidenced by weakness and hypernatremia on admission with DEEPAK secondary to vasomotor nephropathy. Patient states she has not eating well for the past few weeks but denies any nausea, vomiting, diarrhea, abdominal pain or chest pain. She was given DuoNeb 2 facility and was asked to department for further evaluation and treatment options. She denies any tobacco usage ,hemoptysis and hematemesis and hematochezia. The patient was treated for COPD, And associated complaints and showed improvement. Following discussion with family a PEG tube was placed and the patient is tolerating Diet. Severe Dysphagia secondary to Oropharngeal dysphagia s/p PEG tube placement COPD exacerbation Acute Respiratory failure Hypernatermia- RESOLVED Bipolar Disorder HTN GI Peripheral Neuropathy Severe malnutrition Acute metabolic encephalopathy PLAN Continue supportive care [place] barium swallow ordered done but incomplete, obstruction at level of Cricopharyngeus muscle s/p PEG placement Adjust BP meds Discontinue IV Fluids Patient is cleared for discharge but pending placement and level 2 clearance. DVT/GI precaution and fall precautions History Interval history: Patient seen and examined, no acute distress, no overnight issues reported to me, patient tolerating tube feeds. Hospitalist Physical - Physical exam Narrative exam: Gen: Not in acute distress, lying in bed, malnourished, cachectic HEENT: Normocephalic, atraumatic Neck: supple, no JVD Heart: S1 and S2 reg, no murmurs, rubs or gallop Lungs: bilateral rhonchi, wheeze Abd: soft, non tender, Peg site clean, no rebound tenderness, non distended, normal BS, Ext: No edema, no clubbing, no cyanosis Neuro: Awake, alert - Constitutional Vitals: Temp Pulse Resp BP Pulse Ox 97.9 F 77 18 117/70 99 01/02/19 13:30 01/02/19 14:00 01/02/19 13:30 01/02/19 13:30 01/02/19 14:00 Results - Labs CBC & Chem 7: 01/01/19 06:47 01/02/19 08:32 Labs: Laboratory Last Values WBC 6.4 K/mm3 (4.5-11.0) 01/01/19 06:47 RBC 4.37 M/mm3 (3.65-5.03) 01/01/19 06:47 Hgb 14.5 gm/dl (10.1-14.3) H 01/01/19 06:47 Hct 42.2 % (30.3-42.9) 01/01/19 06:47 MCV 97 fl (79-97) 01/01/19 06:47 MCH 33 pg (28-32) H 01/01/19 06:47 MCHC 34 % (30-34) 01/01/19 06:47 RDW 16.0 % (13.2-15.2) H 01/01/19 06:47 Plt Count 176 K/mm3 (140-440) 01/01/19 06:47 Lymph % (Auto) 14.0 % (13.4-35.0) 12/28/18 05:00 [place] % (Auto) 9.1 % (0.0-7.3) H 12/28/18 05:00 Eos % (Auto) 0.1 % (0.0-4.3) 12/28/18 05:00 Baso % (Auto) 0.1 % (0.0-1.8) 12/28/18 05:00 Lymph # 2.3 K/mm3 (1.2-5.4) 12/28/18 05:00 [place] # 1.5 K/mm3 (0.0-0.8) H 12/28/18 05:00 Eos # 0.0 K/mm3 (0.0-0.4) 12/28/18 05:00 Baso # 0.0 K/mm3 (0.0-0.1) 12/28/18 05:00 Seg Neutrophils % 76.7 % (40.0-70.0) H 12/28/18 05:00 Seg Neutrophils # 12.8 K/mm3 (1.8-7.7) H 12/28/18 05:00 Sodium 139 mmol/L (137-145) 01/02/19 08:32 Potassium 4.3 mmol/L (3.6-5.0) 01/02/19 08:32 Chloride 102.0 mmol/L (98-107) 01/02/19 08:32 Carbon Dioxide 25 mmol/L (22-30) 01/02/19 08:32 Anion Gap 16 mmol/L 01/02/19 08:32 BUN 22 mg/dL (7-17) H 01/02/19 08:32 Creatinine 0.5 mg/dL (0.7-1.2) L 01/02/19 08:32 Estimated GFR > 60 ml/min 01/02/19 08:32 BUN/Creatinine Ratio 44 % 01/02/19 08:32 Glucose 115 mg/dL (65-100) H 01/02/19 08:32 POC Glucose 109 (70-105) H 01/02/19 11:56 Hemoglobin A1c 5.5 % (4-6) 12/27/18 12:34 Calcium 8.8 mg/dL (8.4-10.2) 01/02/19 08:32 Total Bilirubin 0.50 mg/dL (0.1-1.2) 12/28/18 05:00 AST 40 units/L (5-40) 12/28/18 05:00 ALT 68 units/L (7-56) H 12/28/18 05:00 Alkaline Phosphatase 81 units/L (35-129) 12/28/18 05:00 Total Protein 7.5 g/dL (6.3-8.2) 12/28/18 05:00 Albumin 4.8 g/dL (3.9-5) 12/28/18 05:00 Albumin/Globulin Ratio 1.8 % 12/28/18 05:00 Urine Color Yellow (Yellow) 12/27/18 Unknown Urine Turbidity Clear (Clear) 12/27/18 Unknown Urine pH 5.0 (5.0-7.0) 12/27/18 Unknown Ur Specific [place] 1.018 (1.003-1.030) 12/27/18 Unknown Urine Protein <15 mg/dl mg/dL (Negative) 12/27/18 Unknown Urine Glucose (UA) Neg mg/dL (Negative) 12/27/18 Unknown Urine Ketones Tr mg/dL (Negative) 12/27/18 Unknown Urine Blood Neg (Negative) 12/27/18 Unknown Urine Nitrite Neg (Negative) 12/27/18 Unknown Urine Bilirubin Neg (Negative) 12/27/18 Unknown Urine Urobilinogen < 2.0 mg/dL (<2.0) 12/27/18 Unknown Ur Leukocyte Esterase Neg (Negative) 12/27/18 Unknown Urine WBC (Auto) 1.0 /HPF (0.0-6.0) 12/27/18 Unknown Urine RBC (Auto) < 1.0 /HPF (0.0-6.0) 12/27/18 Unknown U Epithel Cells (Auto) < 1.0 /HPF (0-13.0) 12/27/18 Unknown Hyaline Casts 1 /LPF 12/27/18 Unknown Urine Mucus Few /HPF 12/27/18 Unknown Hepatitis A IgM Ab Non-reactive (NonReactive) 12/28/18 06:44 Hep Bs Antigen Non-reactive (Negative) 12/28/18 06:44 Hep B Core IgM Ab Non-reactive (NonReactive) 12/28/18 06:44 Hepatitis C Antibody Non-reactive (NonReactive) 12/28/18 06:44 Active Medications - Current Medications Current Medications: Generic Name Dose Route Start Last Admin Trade Name Freq PRN Reason Stop Dose Admin Acetaminophen 650 mg 12/27/18 21:03 01/01/19 20:22 Tylenol PO 650 mg Q4H PRN Administration Pain MILD(1-3)/Fever >100.5/ELIZABETH Albuterol/Ipratropium 1 ampul 12/30/18 20:00 01/02/19 10:55 Duoneb *Not For Prn Use* IH 1 ampul BID ADELA Administration Amlodipine Besylate 5 mg 12/28/18 08:15 01/02/19 13:46 Norvasc PO 5 mg QDAY ADELA Administration Lipase/Protease/Amylase 1 each 01/01/19 14:[address] 10,500 Unit FEEDTUBE PRN PRN For Clogged Feeding Tube Clonidine HCl 0.2 mg 12/28/18 10:00 12/28/18 09:55 Catapres-Tts Patch TD 0.2 mg Th ADELA Administration Diazepam 2.5 mg 12/29/18 11:30 01/02/19 13:54 Valium IV 2.5 mg Q12HR ADELA Administration Enoxaparin Sodium 40 mg 12/28/18 22:00 01/01/19 22:23 Lovenox SUB-Q 40 mg QDAY@2200 ADELA Administration Hydralazine HCl 10 mg 12/28/18 09:00 Apresoline IV Q4H PRN SBP>170 or DBP>110 Potassium Chloride/Dextrose/Sod Cl 20 meq in 1,000 mls @ 50 mls/hr 12/30/18 17:00 01/02/19 00:33 D5w/0.45% Nacl/Kcl 20 Meq IV 50 mls/hr DIRECT ADELA Administration Sodium Chloride 1,000 mls @ 50 mls/hr 01/01/19 09:00 01/01/19 13:26 Nacl 0.9% 1000 Ml IV 50 mls/hr DIRECT ADELA Administration Lansoprazole 30 mg 01/03/19 10:00 Prevacid Solutab FEEDTUBE QDAY ADELA Methylprednisolone Sodium Succinate 20 mg 12/28/18 16:00 01/02/19 13:47 Solu-Medrol IV 20 mg Q12HR ADELA Administration Ondansetron HCl 4 mg 12/27/18 21:03 Zofran IV Q8H PRN Nausea And Vomiting Simple Syrup 15 ml 01/01/19 14:27 Simple Syrup FEEDTUBE PRN PRN Hypoglycemia Simple Syrup 30 ml 01/01/19 14:27 Simple Syrup FEEDTUBE PRN PRN Hypoglycemia Sodium Bicarbonate 325 mg 01/01/19 14:27 Sodium Bicarbonate FEEDTUBE PRN PRN For Clogged Feeding Tube Sodium Chloride 10 ml 12/27/18 22:00 01/02/19 13:47 Sodium Chloride Flush Syringe 10 Ml IV 10 ml BID ADELA Administration Sodium Chloride 10 ml 12/27/18 21:03 12/28/18 16:05 Sodium Chloride Flush Syringe 10 Ml IV 10 ml PRN PRN Administration LINE FLUSH Nutrition/Malnutrition Assess - Dietary Evaluation Nutrition/Malnutrition Findings: Nutrition Notes Start: 12/28/18 10:43 Freq: Status: Active Protocol: Document 01/01/19 14:19 KACEY (Rec: 01/01/19 14:27 KACEY SRW- [email or web address]) Nutrition Notes Need for Assessment generated from: MD Order Initial or Follow up Reassessment Other Pertinent Diagnosis Severe dysphagia, Dehydration, COPD exacerbation Current Diet NPO Labs/Tests Reviewed Pertinent Medications Solumedrol Height 5 ft 4 in Weight 46.3 kg [place] Body Weight (kg) 54.54 BMI 17.5 Subjective/Other Information RD consulted for TF; pt s/p PEG placement. Burn Absent Trauma Absent Minimum of two criteria Yes Body Fat Depletion Moderate depletion (severe) Muscle Mass Moderate Depletion (severe) Protein-Calorie Malnutrition Severe #2 Nutrition Diagnosis Malnutrition Diagnosis Progress(for reassessment Continues documentation) #1 Nutrition Diagnosis Inadequate oral intake Diagnosis Progress(for reassessment Continues documentation) Is patient on ventilator? No Is Patient Ambulatory and/or Out of Bed No REE-([facility]-confined to bed) 1197.288 Kcal/Kg value to use for calculation 35 Approximate Energy Requirements Using 1621 kcal/Kg Calculation Used for Recommendations Kcal/kg Additional Notes Pro needs 1.2-1.5g/k-69g/ day Fluid needs 1ml/kcal Nutrition Intervention Nutrition Support: Jevity 1.2 at 55ml/hr with 100ml water flush q4h. Kcal 1,584 Protein (gm) 73 Carbohydrates (gm) 224 Fat (gm) 52 Fluid (mL) 1,065 Fiber (gm) 24 Goal #1 TF tolerance Goal #2 TF to meet 100% energy and pro needs Goal #3 Wt maintenance and/or gain Anticipated Discharge Needs: Continue TF if necessary Follow-Up By: 01/03/19 Additional Comments F/U: new TF - Attestation Statement I have reviewed and agreed w/ Malnutrition eval & tx plan: Yes
[2019-01-02] MEDS: LOVENOX SUB-Q SCH (22:14)
[2019-01-03] MEDS: DUONEB *Not for PRN Use IH SCH ×3 (00:49→13:42)
[2019-01-03] MEDS ORDERED: TYLENOL FEEDTUBE PRN (05:52)
--- NOTE | 2019-01-03 07:19 | Progress Note ---
Assessment and Plan Assessment and plan: Patient is a 63-year-old female with past medical history of mental health disorder and COPD is currently bedridden presents to emergency department via EMS from [facility] for cough, chest congestion and sputum production breath and also choking sensation with poor po intake over several months and evidenced by weakness and hypernatremia on admission with DEEPAK secondary to vasomotor nephropathy. Patient states she has not eating well for the past few weeks but denies any nausea, vomiting, diarrhea, abdominal pain or chest pain. She was given DuoNeb 2 facility and was asked to department for further evaluation and treatment options. She denies any tobacco usage ,hemoptysis and hematemesis and hematochezia. The patient was treated for COPD, And associated complaints and showed improvement. Following discussion with family a PEG tube was placed and the patient is tolerating Diet. Severe Dysphagia secondary to Oropharngeal dysphagia s/p PEG tube placement COPD exacerbation Acute Respiratory failure Hypernatermia- RESOLVED Bipolar Disorder HTN GI Peripheral Neuropathy Severe malnutrition Acute metabolic encephalopathy PLAN Continue supportive care [place] barium swallow ordered done but incomplete, obstruction at level of Cricopharyngeus muscle s/p PEG placement Increase Norvasc to 10mg, and based on BP may discontinue Clonidine patch. Discontinue IV Fluids Patient is cleared for discharge but pending placement and level 2 clearance. DVT/GI precaution and fall precautions Hospitalist Physical - Constitutional Vitals: Temp Pulse Resp BP Pulse Ox 99.3 F 89 20 151/79 97 01/03/19 02:01 01/03/19 02:01 01/03/19 02:01 01/03/19 02:01 01/03/19 02:01 Results - Labs CBC & Chem 7: 01/01/19 06:47 01/02/19 08:32 Labs: Laboratory Last Values WBC 6.4 K/mm3 (4.5-11.0) 01/01/19 06:47 RBC 4.37 M/mm3 (3.65-5.03) 01/01/19 06:47 Hgb 14.5 gm/dl (10.1-14.3) H 01/01/19 06:47 Hct 42.2 % (30.3-42.9) 01/01/19 06:47 MCV 97 fl (79-97) 01/01/19 06:47 MCH 33 pg (28-32) H 01/01/19 06:47 MCHC 34 % (30-34) 01/01/19 06:47 RDW 16.0 % (13.2-15.2) H 01/01/19 06:47 Plt Count 176 K/mm3 (140-440) 01/01/19 06:47 Lymph % (Auto) 14.0 % (13.4-35.0) 12/28/18 05:00 [place] % (Auto) 9.1 % (0.0-7.3) H 12/28/18 05:00 Eos % (Auto) 0.1 % (0.0-4.3) 12/28/18 05:00 Baso % (Auto) 0.1 % (0.0-1.8) 12/28/18 05:00 Lymph # 2.3 K/mm3 (1.2-5.4) 12/28/18 05:00 [place] # 1.5 K/mm3 (0.0-0.8) H 12/28/18 05:00 Eos # 0.0 K/mm3 (0.0-0.4) 12/28/18 05:00 Baso # 0.0 K/mm3 (0.0-0.1) 12/28/18 05:00 Seg Neutrophils % 76.7 % (40.0-70.0) H 12/28/18 05:00 Seg Neutrophils # 12.8 K/mm3 (1.8-7.7) H 12/28/18 05:00 Sodium 139 mmol/L (137-145) 01/02/19 08:32 Potassium 4.3 mmol/L (3.6-5.0) 01/02/19 08:32 Chloride 102.0 mmol/L (98-107) 01/02/19 08:32 Carbon Dioxide 25 mmol/L (22-30) 01/02/19 08:32 Anion Gap 16 mmol/L 01/02/19 08:32 BUN 22 mg/dL (7-17) H 01/02/19 08:32 Creatinine 0.5 mg/dL (0.7-1.2) L 01/02/19 08:32 Estimated GFR > 60 ml/min 01/02/19 08:32 BUN/Creatinine Ratio 44 % 01/02/19 08:32 Glucose 115 mg/dL (65-100) H 01/02/19 08:32 POC Glucose 168 (70-105) H 01/03/19 05:11 Hemoglobin A1c 5.5 % (4-6) 12/27/18 12:34 Calcium 8.8 mg/dL (8.4-10.2) 01/02/19 08:32 Total Bilirubin 0.50 mg/dL (0.1-1.2) 12/28/18 05:00 AST 40 units/L (5-40) 12/28/18 05:00 ALT 68 units/L (7-56) H 12/28/18 05:00 Alkaline Phosphatase 81 units/L (35-129) 12/28/18 05:00 Total Protein 7.5 g/dL (6.3-8.2) 12/28/18 05:00 Albumin 4.8 g/dL (3.9-5) 12/28/18 05:00 Albumin/Globulin Ratio 1.8 % 12/28/18 05:00 Urine Color Yellow (Yellow) 12/27/18 Unknown Urine Turbidity Clear (Clear) 12/27/18 Unknown Urine pH 5.0 (5.0-7.0) 12/27/18 Unknown Ur Specific [place] 1.018 (1.003-1.030) 12/27/18 Unknown Urine Protein <15 mg/dl mg/dL (Negative) 12/27/18 Unknown Urine Glucose (UA) Neg mg/dL (Negative) 12/27/18 Unknown Urine Ketones Tr mg/dL (Negative) 12/27/18 Unknown Urine Blood Neg (Negative) 12/27/18 Unknown Urine Nitrite Neg (Negative) 12/27/18 Unknown Urine Bilirubin Neg (Negative) 12/27/18 Unknown Urine Urobilinogen < 2.0 mg/dL (<2.0) 12/27/18 Unknown Ur Leukocyte Esterase Neg (Negative) 12/27/18 Unknown Urine WBC (Auto) 1.0 /HPF (0.0-6.0) 12/27/18 Unknown Urine RBC (Auto) < 1.0 /HPF (0.0-6.0) 12/27/18 Unknown U Epithel Cells (Auto) < 1.0 /HPF (0-13.0) 12/27/18 Unknown Hyaline Casts 1 /LPF 12/27/18 Unknown Urine Mucus Few /HPF 12/27/18 Unknown Hepatitis A IgM Ab Non-reactive (NonReactive) 12/28/18 06:44 Hep Bs Antigen Non-reactive (Negative) 12/28/18 06:44 Hep B Core IgM Ab Non-reactive (NonReactive) 12/28/18 06:44 Hepatitis C Antibody Non-reactive (NonReactive) 12/28/18 06:44 Active Medications - Current Medications Current Medications: Generic Name Dose Route Start Last Admin Trade Name Freq PRN Reason Stop Dose Admin Acetaminophen 650 mg 01/03/19 05:52 Tylenol FEEDTUBE Q4H PRN Pain MILD(1-3)/Fever >100.5/ELIZABETH Albuterol/Ipratropium 1 ampul 12/30/18 20:00 01/03/19 00:49 Duoneb *Not For Prn Use* IH Not Given BID ADELA Amantadine HCl 200 mg 01/03/19 22:00 Symmetrel PO HS ADELA Amlodipine Besylate 10 mg 01/03/19 10:00 Norvasc FEEDTUBE QDAY ADELA Lipase/Protease/Amylase 1 each 01/01/19 14:27 Pancreaze 10,500 Unit FEEDTUBE PRN PRN For Clogged Feeding Tube Clonidine HCl 0.2 mg 12/28/18 10:00 12/28/18 09:55 Catapres-Tts Patch TD 0.2 mg Th ADELA Administration Diazepam 2.5 mg 12/29/18 11:30 01/02/19 22:15 Valium IV 2.5 mg Q12HR ADELA Administration Enoxaparin Sodium 40 mg 12/28/18 22:00 01/02/19 22:14 Lovenox SUB-Q 40 mg QDAY@2200 ADELA Administration Gabapentin 300 mg 01/03/19 22:00 Neurontin PO HS ADELA Hydralazine HCl 10 mg 12/28/18 09:00 Apresoline IV Q4H PRN SBP>170 or DBP>110 Sodium Chloride 1,000 mls @ 50 mls/hr 01/01/19 09:00 01/01/19 13:26 Nacl 0.9% 1000 Ml IV 50 mls/hr DIRECT ADELA Administration Lansoprazole 30 mg 01/03/19 10:00 Prevacid Solutab FEEDTUBE QDAY ADELA Methylprednisolone Sodium Succinate 20 mg 12/28/18 16:00 01/02/19 22:15 Solu-Medrol IV 20 mg Q12HR ADELA Administration Miscellaneous Medication 10 mg 01/03/19 08:00 Diazepam [Diazepam] PO TID ADELA Miscellaneous Medication 40 mg 01/03/19 10:00 Omeprazole [Omeprazole] PO DAILY ADELA Ondansetron HCl 4 mg 12/27/18 21:03 Zofran IV Q8H PRN Nausea And Vomiting Prednisone 5 mg 01/03/19 10:00 Deltasone PO DAILY [facility] Quetiapine Fumarate 150 mg 01/03/19 22:00 Seroquel PO HS ADELA Simple Syrup 15 ml 01/01/19 14:27 Simple Syrup FEEDTUBE PRN PRN Hypoglycemia Simple Syrup 30 ml 01/01/19 14:27 Simple Syrup FEEDTUBE PRN PRN Hypoglycemia Sodium Bicarbonate 325 mg 01/01/19 14:27 Sodium Bicarbonate FEEDTUBE PRN PRN For Clogged Feeding Tube Sodium Chloride 10 ml 12/27/18 22:00 01/02/19 22:15 Sodium Chloride Flush Syringe 10 Ml IV 10 ml BID ADELA Administration Sodium Chloride 10 ml 12/27/18 21:03 12/28/18 16:05 Sodium Chloride Flush Syringe 10 Ml IV 10 ml PRN PRN Administration LINE FLUSH Nutrition/Malnutrition Assess - Dietary Evaluation Nutrition/Malnutrition Findings: Nutrition Notes Start: 12/28/18 10:43 Freq: Status: Active Protocol: Document 01/01/19 14:19 KACEY (Rec: 01/01/19 14:27 [facility] [id number] [email or web address]) Nutrition Notes Need for Assessment generated from: MD Order Initial or Follow up Reassessment Other Pertinent Diagnosis Severe dysphagia, Dehydration, COPD exacerbation Current Diet NPO Labs/Tests Reviewed Pertinent Medications Solumedrol Height 5 ft 4 in Weight 46.3 kg [place] Body Weight (kg) 54.54 BMI 17.5 Subjective/Other Information RD consulted for TF; pt s/p PEG placement. Burn Absent Trauma Absent Minimum of two criteria Yes Body Fat Depletion Moderate depletion (severe) Muscle Mass Moderate Depletion (severe) Protein-Calorie Malnutrition Severe #2 Nutrition Diagnosis Malnutrition Diagnosis Progress(for reassessment Continues documentation) #1 Nutrition Diagnosis Inadequate oral intake Diagnosis Progress(for reassessment Continues documentation) Is patient on ventilator? No Is Patient Ambulatory and/or Out of Bed No REE-([place]-confined to bed) 1197.288 Kcal/Kg value to use for calculation 35 Approximate Energy Requirements Using 1621 kcal/Kg Calculation Used for Recommendations Kcal/kg Additional Notes Pro needs 1.2-1.5g/k-69g/ day Fluid needs 1ml/kcal Nutrition Intervention Nutrition Support: Jevity 1.2 at 55ml/hr with 100ml water flush q4h. Kcal 1,584 Protein (gm) 73 Carbohydrates (gm) 224 Fat (gm) 52 Fluid (mL) 1,065 Fiber (gm) 24 Goal #1 TF tolerance Goal #2 TF to meet 100% energy and pro needs Goal #3 Wt maintenance and/or gain Anticipated Discharge Needs: Continue TF if necessary Follow-Up By: 01/03/19 Additional Comments F/U: new TF
[2019-01-03] MEDS: VALIUM PO SCH ×2 (07:39→13:08)
[2019-01-03] MEDS: SODIUM CHLORIDE FLUSH SYRINGE 10 ML IV SCH (08:59)
[2019-01-03] MEDS ORDERED: NORVASC FEEDTUBE SCH ×2 (10:00)
[2019-01-03] MEDS ORDERED: NON-FORMULARY (Omeprazole [Omeprazole] 40 MG) PO SCH (10:00)
[2019-01-03] MEDS ORDERED: PREVACID SOLUTAB FEEDTUBE SCH (10:00)
[2019-01-03] MEDS ORDERED: PROTONIX PO SCH (10:00)
[2019-01-03] MEDS ORDERED: DELTASONE FEEDTUBE SCH (10:00)
[2019-01-03] MEDS ORDERED: DELTASONE PO SCH (10:00)
[2019-01-03 13:53] VITALS: BP 146/78
[2019-01-03] MEDS ORDERED: NEURONTIN PO SCH (22:00)
[2019-01-03] MEDS ORDERED: SYMMETREL PO SCH (22:00)
== END 2019-01-03 15:52 | DRG 682 ==
LOC: ED 10:29 → 2B-ACE 14:36 → OBSVTOIN 12-28 15:45
PROVIDERS: ADMIT Internal Medicine; ATTEND Internal Medicine
PROC: 0DH63UZ Insertion of Feeding Device into Stomach, Percutaneous Approach (ICD-10-PCS; principal; 2019-01-01)
DX: N17.0 Acute kidney failure with tubular necrosis (principal); G93.41 Metabolic encephalopathy; E43 Unspecified severe protein-calorie malnutrition; J96.00 Acute respiratory failure, unspecified whether with hypoxia or hypercapnia; J44.1 Chronic obstructive pulmonary disease with (acute) exacerbation; E87.0 Hyperosmolality and hypernatremia; Z68.1 Body mass index [BMI] 19.9 or less, adult; R13.12 Dysphagia, oropharyngeal phase; E86.0 Dehydration; R74.0 Nonspecific elevation of levels of transaminase and lactic acid dehydrogenase [LDH]; F31.9 Bipolar disorder, unspecified; I10 Essential (primary) hypertension; G62.9 Polyneuropathy, unspecified; K44.9 Diaphragmatic hernia without obstruction or gangrene; K29.70 Gastritis, unspecified, without bleeding; Z79.899 Other long term (current) drug therapy
CPT/HCPCS: 36415; 71045; 74220; 80048; 80053; 80074; 81001; 82962; 83036; 85025; 85027; 94640; 94644; 94760; 96374; G0378; C9113; J0360; J0690; J1650; J1956; J2704; J2920; J3360; J7030; J7070; J7512